=== PATIENT | female | born 1960 | race Caucasian/White ===

== ENCOUNTER 2020-12-03 11:50 | Inpatient (IN) ==
--- NOTE | 2020-12-03 12:43 | Emergency Department Note ---
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 (1.2-3.4) K/uL [place] # (Auto) (0.11-0.59) K/uL Eos # (Auto) (0-0.5) K/uL Baso # (Auto) (0-0.2) K/uL Immature Gran # (Auto) (0.00-0.02) K/uL PT (9.0-12.0) Seconds INR (0.9-1.1) APTT (21.0-31.0) Seconds PTT Ratio Sodium (136-145) mmol/L Potassium (3.5-5.1) mmol/L Chloride (98-107) mmol/L Carbon Dioxide (21-32) mmol/L Anion Gap (3-11) BUN (7-18) mg/dl Creatinine (0.6-1.2) mg/dl Est Cr Clr Drug Dosing ml/min Est GFR ( Amer) Est GFR (Non-Af Amer) BUN/Creatinine Ratio (10-20) Glucose (70-99) mg/dl POC Glucose 181 H (70-99) mg/dl Estimat Average Glucose mg/dl Hemoglobin A1c (4.5-5.6) % Lactate 2.4 H* (0.4-2.0) mmol/L Calcium (8.5-10.1) mg/dl Magnesium (1.8-2.4) mg/dl Total Bilirubin (0.2-1) mg/dl Direct Bilirubin (0-0.2) mg/dl AST (15-37) U/L ALT (12-78) U/L Alkaline Phosphatase (45-117) U/L Troponin I (0-0.045) ng/ml Total Protein (6.4-8.2) gm/dl Albumin (3.4-5.0) gm/dl Globulin (2.5-4.0) gm/dl Albumin/Globulin Ratio (0.9-2) Lipase (73-393) U/L Urine Color Urine Appearance (Clear) Urine pH (4.5-7.5) Ur Specific [place] [address] (1.000-1.030) Urine Protein (Negative) Urine Glucose (UA) (Negative) Urine Ketones (Negative) Urine Blood (Negative) Urine Nitrite (Negative) Urine Bilirubin (Negative) Urine Urobilinogen (Negative) Ur Leukocyte Esterase (Negative) Urine WBC (Auto) (0-5) /hpf Urine RBC (Auto) (0-4) /hpf U Hyaline Cast (Auto) (0-5) /lpf U Epithel Cells (Auto) (0-5) /lpf Urine Bacteria (Auto) (Negative) Urine Yeast Ethyl Alcohol mg/dL 22.2 H (0-3) mg/dl COVID-19 Eval Order SARS-CoV-2 (PCR) (Negative) Influenza Type A (PCR) (Neg) Influenza Type B (PCR) (Neg) RSV (RT-PCR) (Neg) 12/03/20 12/03/20 12/04/20 Range/Units 20:32 22:03 05:49 WBC 10.66 (4.8-10.8) K/uL RBC 4.47 (4.2-5.4) M/uL Hgb 15.2 (12.0-16.0) g/dL Hct 46.0 (37-47) % MCV 102.9 H (80-100) fL MCH 34.0 (25-34) pg MCHC 33.0 (32-36) g/dL RDW Std Deviation 55.9 H (36.4-46.3) fL RDW Coeff of Angelika 14.8 H (11.5-14.5) % Plt Count 285 (130-400) K/uL MPV 10.3 (7.4-10.4) fL Immature Gran % (Auto) 0.3 % Neut % (Auto) 42.4 % Lymph % (Auto) 37.1 % [place] % (Auto) 13.2 % Eos % (Auto) 5.6 % Baso % (Auto) 1.4 % Neut # (Auto) 4.51 (1.4-6.5) K/uL Lymph # (Auto) 3.96 H (1.2-3.4) K/uL [place] # (Auto) 1.41 H (0.11-0.59) K/uL Eos # (Auto) 0.60 H (0-0.5) K/uL Baso # (Auto) 0.15 (0-0.2) K/uL Immature Gran # (Auto) 0.03 H (0.00-0.02) K/uL PT (9.0-12.0) Seconds INR (0.9-1.1) APTT (21.0-31.0) Seconds PTT Ratio Sodium (136-145) mmol/L Potassium (3.5-5.1) mmol/L Chloride (98-107) mmol/L Carbon Dioxide (21-32) mmol/L Anion Gap (3-11) BUN (7-18) mg/dl Creatinine (0.6-1.2) mg/dl Est Cr Clr Drug Dosing ml/min Est GFR ( Amer) Est GFR (Non-Af Amer) BUN/Creatinine Ratio (10-20) Glucose (70-99) mg/dl POC Glucose 164 H 266 H (70-99) mg/dl Estimat Average Glucose mg/dl Hemoglobin A1c (4.5-5.6) % Lactate (0.4-2.0) mmol/L Calcium (8.5-10.1) mg/dl Magnesium (1.8-2.4) mg/dl Total Bilirubin (0.2-1) mg/dl Direct Bilirubin (0-0.2) mg/dl AST (15-37) U/L ALT (12-78) U/L Alkaline Phosphatase (45-117) U/L Troponin I (0-0.045) ng/ml Total Protein (6.4-8.2) gm/dl Albumin (3.4-5.0) gm/dl Globulin (2.5-4.0) gm/dl Albumin/Globulin Ratio (0.9-2) Lipase (73-393) U/L Urine Color Urine Appearance (Clear) Urine pH (4.5-7.5) Ur Specific [place] [address] (1.000-1.030) Urine Protein (Negative) Urine Glucose (UA) (Negative) Urine Ketones (Negative) Urine Blood (Negative) Urine Nitrite (Negative) Urine Bilirubin (Negative) Urine Urobilinogen (Negative) Ur Leukocyte Esterase (Negative) Urine WBC (Auto) (0-5) /hpf Urine RBC (Auto) (0-4) /hpf U Hyaline Cast (Auto) (0-5) /lpf U Epithel Cells (Auto) (0-5) /lpf Urine Bacteria (Auto) (Negative) Urine Yeast Ethyl Alcohol mg/dL (0-3) mg/dl COVID-19 Eval Order SARS-CoV-2 (PCR) (Negative) Influenza Type A (PCR) (Neg) Influenza Type B (PCR) (Neg) RSV (RT-PCR) (Neg) 12/04/20 12/04/20 12/04/20 Range/Units 07:21 07:21 08:13 WBC (4.8-10.8) K/uL RBC (4.2-5.4) M/uL Hgb (12.0-16.0) g/dL Hct (37-47) % MCV (80-100) fL MCH (25-34) pg MCHC (32-36) g/dL RDW Std Deviation (36.4-46.3) fL RDW Coeff of Angelika (11.5-14.5) % Plt Count (130-400) K/uL MPV (7.4-10.4) fL Immature Gran % (Auto) % Neut % (Auto) % Lymph % (Auto) % [place] % (Auto) % Eos % (Auto) % Baso % (Auto) % Neut # (Auto) (1.4-6.5) K/uL Lymph # (Auto) (1.2-3.4) K/uL [place] # (Auto) (0.11-0.59) K/uL Eos # (Auto) (0-0.5) K/uL Baso # (Auto) (0-0.2) K/uL Immature Gran # (Auto) (0.00-0.02) K/uL PT (9.0-12.0) Seconds INR (0.9-1.1) APTT (21.0-31.0) Seconds PTT Ratio Sodium 137 (136-145) mmol/L Potassium 3.2 L (3.5-5.1) mmol/L Chloride 103 (98-107) mmol/L Carbon Dioxide 26 (21-32) mmol/L Anion Gap 7.0 (3-11) BUN 6 L (7-18) mg/dl Creatinine 0.67 (0.6-1.2) mg/dl Est Cr Clr Drug Dosing 113.5 ml/min Est GFR ( Amer) 109.2 Est GFR (Non-Af Amer) 94.2 BUN/Creatinine Ratio 9.2 L (10-20) Glucose 201 H (70-99) mg/dl POC Glucose 181 H (70-99) mg/dl Estimat Average Glucose 260 mg/dl Hemoglobin A1c 10.7 H (4.5-5.6) % Lactate (0.4-2.0) mmol/L Calcium 8.6 (8.5-10.1) mg/dl Magnesium (1.8-2.4) mg/dl Total Bilirubin 0.8 (0.2-1) mg/dl Direct Bilirubin (0-0.2) mg/dl AST 65 H (15-37) U/L ALT 70 (12-78) U/L Alkaline Phosphatase 99 (45-117) U/L Troponin I (0-0.045) ng/ml Total Protein 6.8 (6.4-8.2) gm/dl Albumin 2.8 L (3.4-5.0) gm/dl Globulin 4.0 (2.5-4.0) gm/dl Albumin/Globulin Ratio 0.7 L (0.9-2) Lipase (73-393) U/L Urine Color Urine Appearance (Clear) Urine pH (4.5-7.5) Ur Specific [place] [address] (1.000-1.030) Urine Protein (Negative) Urine Glucose (UA) (Negative) Urine Ketones (Negative) Urine Blood (Negative) Urine Nitrite (Negative) Urine Bilirubin (Negative) Urine Urobilinogen (Negative) Ur Leukocyte Esterase (Negative) Urine WBC (Auto) (0-5) /hpf Urine RBC (Auto) (0-4) /hpf U Hyaline Cast (Auto) (0-5) /lpf U Epithel Cells (Auto) (0-5) /lpf Urine Bacteria (Auto) (Negative) Urine Yeast Ethyl Alcohol mg/dL (0-3) mg/dl COVID-19 Eval Order SARS-CoV-2 (PCR) (Negative) Influenza Type A (PCR) (Neg) Influenza Type B (PCR) (Neg) RSV (RT-PCR) (Neg) 12/04/20 12/04/20 12/04/20 Range/Units 13:18 17:11 20:26 WBC (4.8-10.8) K/uL RBC (4.2-5.4) M/uL Hgb (12.0-16.0) g/dL Hct (37-47) % MCV (80-100) fL MCH (25-34) pg MCHC (32-36) g/dL RDW Std Deviation (36.4-46.3) fL RDW Coeff of Angelika (11.5-14.5) % Plt Count (130-400) K/uL MPV (7.4-10.4) fL Immature Gran % (Auto) % Neut % (Auto) % Lymph % (Auto) % [place] % (Auto) % Eos % (Auto) % Baso % (Auto) % Neut # (Auto) (1.4-6.5) K/uL Lymph # (Auto) (1.2-3.4) K/uL [place] # (Auto) (0.11-0.59) K/uL Eos # (Auto) (0-0.5) K/uL Baso # (Auto) (0-0.2) K/uL Immature Gran # (Auto) (0.00-0.02) K/uL PT (9.0-12.0) Seconds INR (0.9-1.1) APTT (21.0-31.0) Seconds PTT Ratio Sodium (136-145) mmol/L Potassium (3.5-5.1) mmol/L Chloride (98-107) mmol/L Carbon Dioxide (21-32) mmol/L Anion Gap (3-11) BUN (7-18) mg/dl Creatinine (0.6-1.2) mg/dl Est Cr Clr Drug Dosing ml/min Est GFR ( Amer) Est GFR (Non-Af Amer) BUN/Creatinine Ratio (10-20) Glucose (70-99) mg/dl POC Glucose 156 H 203 H 219 H (70-99) mg/dl Estimat Average Glucose mg/dl Hemoglobin A1c (4.5-5.6) % Lactate (0.4-2.0) mmol/L Calcium (8.5-10.1) mg/dl Magnesium (1.8-2.4) mg/dl Total Bilirubin (0.2-1) mg/dl Direct Bilirubin (0-0.2) mg/dl AST (15-37) U/L ALT (12-78) U/L Alkaline Phosphatase (45-117) U/L Troponin I (0-0.045) ng/ml Total Protein (6.4-8.2) gm/dl Albumin (3.4-5.0) gm/dl Globulin (2.5-4.0) gm/dl Albumin/Globulin Ratio (0.9-2) Lipase (73-393) U/L Urine Color Urine Appearance (Clear) Urine pH (4.5-7.5) Ur Specific [place] [address] (1.000-1.030) Urine Protein (Negative) Urine Glucose (UA) (Negative) Urine Ketones (Negative) Urine Blood (Negative) Urine Nitrite (Negative) Urine Bilirubin (Negative) Urine Urobilinogen (Negative) Ur Leukocyte Esterase (Negative) Urine WBC (Auto) (0-5) /hpf Urine RBC (Auto) (0-4) /hpf U Hyaline Cast (Auto) (0-5) /lpf U Epithel Cells (Auto) (0-5) /lpf Urine Bacteria (Auto) (Negative) Urine Yeast Ethyl Alcohol mg/dL (0-3) mg/dl COVID-19 Eval Order SARS-CoV-2 (PCR) (Negative) Influenza Type A (PCR) (Neg) Influenza Type B (PCR) (Neg) RSV (RT-PCR) (Neg) 12/05/20 12/05/20 12/05/20 Range/Units 06:19 06:19 08:34 WBC 8.86 (4.8-10.8) K/uL RBC 4.59 (4.2-5.4) M/uL Hgb 16.1 H (12.0-16.0) g/dL Hct 47.2 H (37-47) % MCV 102.8 H (80-100) fL MCH 35.1 H (25-34) pg MCHC 34.1 (32-36) g/dL RDW Std Deviation 56.2 H (36.4-46.3) fL RDW Coeff of Angelika 14.8 H (11.5-14.5) % Plt Count 313 (130-400) K/uL MPV 10.7 H (7.4-10.4) fL Immature Gran % (Auto) 0.2 % Neut % (Auto) 43.5 % Lymph % (Auto) 34.9 % [place] % (Auto) 14.3 % Eos % (Auto) 5.1 % Baso % (Auto) 2.0 % Neut # (Auto) 3.85 (1.4-6.5) K/uL Lymph # (Auto) 3.09 (1.2-3.4) K/uL [place] # (Auto) 1.27 H (0.11-0.59) K/uL Eos # (Auto) 0.45 (0-0.5) K/uL Baso # (Auto) 0.18 (0-0.2) K/uL Immature Gran # (Auto) 0.02 (0.00-0.02) K/uL PT (9.0-12.0) Seconds INR (0.9-1.1) APTT (21.0-31.0) Seconds PTT Ratio Sodium 136 (136-145) mmol/L Potassium 3.4 L (3.5-5.1) mmol/L Chloride 104 (98-107) mmol/L Carbon Dioxide 26 (21-32) mmol/L Anion Gap 7.0 (3-11) BUN 6 L (7-18) mg/dl Creatinine 0.64 (0.6-1.2) mg/dl Est Cr Clr Drug Dosing 118.8 ml/min Est GFR ( Amer) 110.8 Est GFR (Non-Af Amer) 95.6 BUN/Creatinine Ratio 9.7 L (10-20) Glucose 172 H (70-99) mg/dl POC Glucose 170 H (70-99) mg/dl Estimat Average Glucose mg/dl Hemoglobin A1c (4.5-5.6) % Lactate (0.4-2.0) mmol/L Calcium 9.4 (8.5-10.1) mg/dl Magnesium (1.8-2.4) mg/dl Total Bilirubin 1.1 H (0.2-1) mg/dl Direct Bilirubin (0-0.2) mg/dl AST 56 H (15-37) U/L ALT 64 (12-78) U/L Alkaline Phosphatase 105 (45-117) U/L Troponin I (0-0.045) ng/ml Total Protein 6.8 (6.4-8.2) gm/dl Albumin 3.1 L (3.4-5.0) gm/dl Globulin 3.7 (2.5-4.0) gm/dl Albumin/Globulin Ratio 0.8 L (0.9-2) Lipase (73-393) U/L Urine Color Urine Appearance (Clear) Urine pH (4.5-7.5) Ur Specific [place] [address] (1.000-1.030) Urine Protein (Negative) Urine Glucose (UA) (Negative) Urine Ketones (Negative) Urine Blood (Negative) Urine Nitrite (Negative) Urine Bilirubin (Negative) Urine Urobilinogen (Negative) Ur Leukocyte Esterase (Negative) Urine WBC (Auto) (0-5) /hpf Urine RBC (Auto) (0-4) /hpf U Hyaline Cast (Auto) (0-5) /lpf U Epithel Cells (Auto) (0-5) /lpf Urine Bacteria (Auto) (Negative) Urine Yeast Ethyl Alcohol mg/dL (0-3) mg/dl COVID-19 Eval Order SARS-CoV-2 (PCR) (Negative) Influenza Type A (PCR) (Neg) Influenza Type B (PCR) (Neg) RSV (RT-PCR) (Neg) 12/05/20 Range/Units 12:15 WBC (4.8-10.8) K/uL RBC (4.2-5.4) M/uL Hgb (12.0-16.0) g/dL Hct (37-47) % MCV (80-100) fL MCH (25-34) pg MCHC (32-36) g/dL RDW Std Deviation (36.4-46.3) fL RDW Coeff of Angelika (11.5-14.5) % Plt Count (130-400) K/uL MPV (7.4-10.4) fL Immature Gran % (Auto) % Neut % (Auto) % Lymph % (Auto) % [place] % (Auto) % Eos % (Auto) % Baso % (Auto) % Neut # (Auto) (1.4-6.5) K/uL Lymph # (Auto) (1.2-3.4) K/uL [place] # (Auto) (0.11-0.59) K/uL Eos # (Auto) (0-0.5) K/uL Baso # (Auto) (0-0.2) K/uL Immature Gran # (Auto) (0.00-0.02) K/uL PT (9.0-12.0) Seconds INR (0.9-1.1) APTT (21.0-31.0) Seconds PTT Ratio Sodium (136-145) mmol/L Potassium (3.5-5.1) mmol/L Chloride (98-107) mmol/L Carbon Dioxide (21-32) mmol/L Anion Gap (3-11) BUN (7-18) mg/dl Creatinine (0.6-1.2) mg/dl Est Cr Clr Drug Dosing ml/min Est GFR ( Amer) Est GFR (Non-Af Amer) BUN/Creatinine Ratio (10-20) Glucose (70-99) mg/dl POC Glucose 135 H (70-99) mg/dl Estimat Average Glucose mg/dl Hemoglobin A1c (4.5-5.6) % Lactate (0.4-2.0) mmol/L Calcium (8.5-10.1) mg/dl Magnesium (1.8-2.4) mg/dl Total Bilirubin (0.2-1) mg/dl Direct Bilirubin (0-0.2) mg/dl AST (15-37) U/L ALT (12-78) U/L Alkaline Phosphatase (45-117) U/L Troponin I (0-0.045) ng/ml Total Protein (6.4-8.2) gm/dl Albumin (3.4-5.0) gm/dl Globulin (2.5-4.0) gm/dl Albumin/Globulin Ratio (0.9-2) Lipase (73-393) U/L Urine Color Urine Appearance (Clear) Urine pH (4.5-7.5) Ur Specific [place] [address] (1.000-1.030) Urine Protein (Negative) Urine Glucose (UA) (Negative) Urine Ketones (Negative) Urine Blood (Negative) Urine Nitrite (Negative) Urine Bilirubin (Negative) Urine Urobilinogen (Negative) Ur Leukocyte Esterase (Negative) Urine WBC (Auto) (0-5) /hpf Urine RBC (Auto) (0-4) /hpf U Hyaline Cast (Auto) (0-5) /lpf U Epithel Cells (Auto) (0-5) /lpf Urine Bacteria (Auto) (Negative) Urine Yeast Ethyl Alcohol mg/dL (0-3) mg/dl COVID-19 Eval Order SARS-CoV-2 (PCR) (Negative) Influenza Type A (PCR) (Neg) Influenza Type B (PCR) (Neg) RSV (RT-PCR) (Neg) Imaging Data Attestation: I personally reviewed and interpreted this imaging study as follows: Radiologist's Impression: CT abdomen pelvis with IV and oral contrast No significant change compared to the prior study. 2. No bowel wall thickening or obstruction. 3. Cirrhotic liver with associated hepatic steatosis. 4. Cholecystectomy and splenectomy. 5. Additional findings as described above. ACT 112: Negative or not required by law. cxr No acute process. ACT 112: Negative or not required by law. Electronically signed by: Weston Mcknight M.D. 12/03/2020 1:38 PM Dictated: 12/03/204Transcribed: 12/03/20 133 ECG Data Attestation: I personally reviewed and interpreted this ECG as follows: Indication: other Rate (beats per minute): 98 Rhythm: normal sinus Additional Comments: Frequent PVCs noted. No prior for comparison. No ST elevation or depression noted. MDM Narrative Differential diagnosis: Pancreatitis, retained stone, bowel obstruction, viral versus bacterial GI illness, cardiac arrhythmia, cardiac ischemia, PE, other viral illness, among others were considered This patient is a 60-year-old female who presents emergency department with multiple complaints as noted above. On exam, her vital signs were stable. She was slightly tachycardic. Her blood pressure however was normal. Her abdomen was slightly tender in the epigastric and right upper quadrant. A work-up was performed. There is no leukocytosis. Her LFTs are within normal limits. Renal function intact. Lipase was negative. Chest x-ray was performed. No signs of pneumonia noted. She is Covid negative. A CAT scan was performed. This is consistent with cirrhotic disease of the liver. The patient was hydrated and given several rounds of antiemetics in the emergency department. We had a lengthy discussion regarding disposition. At this point, the patient does not feel comfortable going home as she does not think that she can tolerate a diet. Hospitalist was consulted for possible inpatient management. Impression & Plan Intractable vomiting, Abdominal pain Discharge Plan Visit Data Chief Complaint: Abdominal Pain Stated Complaint: RT SIDED ABD PAIN INTO BACK, VOMITING ED Provider: Lex Rouse ED Midlevel Provider: Natalie Arenas Discharge Problem: Intractable vomiting, Abdominal pain Patient Disposition: Admitted As Inpatient Discharge Instructions Interventions: ED Discharge Assessment Last Done: 12/03/20 19:11
[2020-12-03] MEDS ORDERED: SODIUM CHLORIDE 0.9% 1000ML 1,000 ML IV SCH (12:45)
--- NOTE | 2020-12-03 13:40 | XRay Report ---
XR chest 1V portable HISTORY: SEPSIS COMPARISON: None. FINDINGS: The lungs are clear. Overlying calcified breast implants are noted. The heart is top normal in size. This may be accentuated by the low lung volumes. No pleural effusions. No pneumothorax. No evidence for pulmonary edema. IMPRESSION: No acute process. ACT 112: Negative or not required by law. Electronically signed by: Weston Mcknight M.D. 12/03/2020 1:38 PM
[2020-12-03] MEDS ORDERED: ONDANSETRON INJ 2 MG/ML 2 ML VIAL IV STA (13:42)
[2020-12-03 13:45] LABS: Appearance Urine Turbid (Clear); Bacteria Urine Automated 4+ (Negative); Bilirubin Urine Negative (Negative); Blood Urine Negative (Negative); Color Urine Dark Yellow; Epithelial Cell Urine Auto >30 /lpf (0-5); Glucose Urine UA 3+ (Negative); Ketones Urine Trace (Negative); Leukocyte Esterase Urine Negative (Negative); Nitrite Urine Negative (Negative); Protein Urine Trace (Negative); RBC Urine Automated 0-4 /hpf (0-4); Specific Gravity Urine 1.025 (1.000-1.030); Urobilinogen Urine Negative (Negative); WBC Urine Automated >30 /hpf (0-5)
[2020-12-03 14:04] LABS: Cast Urine Automated 0 /lpf (0-5)
[2020-12-03 14:26] LABS: Influenza A virus by PCR Negative (Neg); Influenza B virus by PCR Negative (Neg); RSV by PCR Negative (Neg); SARS CoV2 RNA(COVID-19) InHosp NEGATIVE (Negative)
[2020-12-03 14:27] LABS: Basophils # (auto) 0.19 K/uL (0-0.2); Basophils % (auto) 1.7 %; Eosinophils # (auto) 0.51 K/uL (0-0.5); Eosinophils % (auto) 4.7 %; Hematocrit (blood only) 48.6 % (37-47); Immature Granulocytes # (auto) 0.03 K/uL (0.00-0.02); Immature Granulocytes % (auto) 0.3 %; Lymphocytes # (auto) 3.54 K/uL (1.2-3.4); Lymphocytes % (auto) 32.4 %; Mean Corpuscular Hemoglobin 35.3 pg (25-34); Mean Platelet Volume 11.2 fL (7.4-10.4); Monocytes # (auto) 1.63 K/uL (0.11-0.59); Monocytes % (auto) 14.9 %; Neutrophils # (auto) 5.01 K/uL (1.4-6.5); Platelet Count 334 K/uL (130-400); RDW Coefficient of Variation 14.6 % (11.5-14.5); RDW Standard Deviation 53.7 fL (36.4-46.3); Red Blood Count 4.81 M/uL (4.2-5.4); White Blood Count 10.91 K/uL (4.8-10.8)
[2020-12-03] MEDS ORDERED: SODIUM CHLORIDE 0.9% 1000ML 1,000 ML IV ONE (14:41)
[2020-12-03 14:48] LABS: Partial Thromboplastin Time 27.6 Seconds (21.0-31.0); Prothrombin Time 10.9 Seconds (9.0-12.0)
[2020-12-03 14:49] LABS: Alanine Aminotransferase 82 U/L (12-78); Albumin Level 3.5 gm/dl (3.4-5.0); Aspartate Aminotransferase 79 U/L (15-37); BUN Creatinine Ratio 8.5 (10-20); Blood Urea Nitrogen 7 mg/dl (7-18); Calcium 9.8 mg/dl (8.5-10.1); Carbon Dioxide 24 mmol/L (21-32); Chloride 99 mmol/L (98-107); Creatinine Clr Calc Pharmacy 95.2 ml/min; Est GFR (Non-African American) 80.2; Glucose 287 mg/dl (70-99); Magnesium 1.8 mg/dl (1.8-2.4); Potassium 3.1 mmol/L (3.5-5.1); Sodium 136 mmol/L (136-145)
[2020-12-03 14:54] LABS: Albumin Globulin Ratio 0.8 (0.9-2); Alkaline Phosphatase 122 U/L (45-117); Bilirubin,Total 0.8 mg/dl (0.2-1); Globulin 4.5 gm/dl (2.5-4.0); Troponin I < 0.015 ng/ml (0-0.045)
[2020-12-03] MEDS ORDERED: IOVERSOL 100ml IV ONE (15:11)
[2020-12-03 15:31] LABS: Bilirubin Direct 0.3 mg/dl (0-0.2)
--- NOTE | 2020-12-03 15:33 | CT Scan Report ---
ABDOMEN AND PELVIS CT WITH IV AND ORAL CONTRAST CT DOSE: 1473.51 mGy.cm HISTORY: Nausea. Vomiting. Generalized abdominal pain. TECHNIQUE: Multiaxial CT images of the abdomen and pelvis were performed following the use of intrave nous and oral contrast. A dose lowering technique was utilized adhering to the principles of ALARA. COMPARISON STUDY: None. FINDINGS: Mild dependent changes seen at the lung bases. No pneumoperitoneum. No pneumatosis. Old, he aled right pubic ring fractures and an old, healed left iliac bone fracture. Calcified breast implant s are again noted. Hepatic steatosis. Heterogeneous appearance to the liver with a nodular contour co nsistent with cirrhosis. The main portal vein is patent. The spleen is absent. There is a stable sple rosa isela nodule within the left upper quadrant. The adrenal glands, pancreas, and kidneys are within venu l limits. No hydronephrosis. No retroperitoneal lymphadenopathy. Normal caliber abdominal aorta. An I VC filter is unchanged in position. Cholecystectomy. The bladder, uterus, bilateral adnexa are within normal limits. No pelvic free fluid. No bowel wall thickening or obstruction. The appendix is not id entified and reportedly surgically absent. IMPRESSION: 1. No significant change compared to the prior study. 2. No bowel wall thickening or obstruction. 3. Cirrhotic liver with associated hepatic steatosis. 4. Cholecystectomy and splenectomy. 5. Additional findings as described above. ACT 112: Negative or not required by law. Electronically signed by: Weston Mcknight M.D. 12/03/2020 3:32 PM
[2020-12-03] MEDS ORDERED: MoRPHine SULFATE 4 MG/ML 1 ML CARP\\VIAL IV STA (16:08)
--- NOTE | 2020-12-03 16:27 | Electrocardiogram Report ---
Test Reason : Blood Pressure : / mmHG Vent. Rate : 098 BPM Atrial Rate : 098 BPM P-R Int : 156 ms QRS Dur : 150 ms QT Int : 422 ms P-R-T Axes : 043 -34 009 degrees QTc Int : 538 ms Sinus rhythm with occasional Premature ventricular complexes Left axis deviation Right bundle branch block Abnormal ECG No previous ECGs available Confirmed by Travis Dozier ([id number]) on 12/03/2020 4:26:37 PM Referred By: Claudia Cardenas Confirmed By:Travis Dozier
[2020-12-03] MEDS ORDERED: cefTRIAXone SODIUM 2,000 MG/70 ML BAG IV STA (16:30)
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
[2020-12-03] MEDS ORDERED: GI COCKTAIL ED USE PO STA (17:26)
[2020-12-03] MEDS ORDERED: CARBOHYDRATES FOR HYPOGLYCEMIA PO PRN (20:15)
[2020-12-03] MEDS ORDERED: ALUMINUM/MAGNESIUM SUSP 30 ML UDC PO PRN (20:15)
[2020-12-03] MEDS ORDERED: POLYETHYLENE (MIRALAX) 17 GM PACK PO PRN (20:15)
[2020-12-03] MEDS ORDERED: DEXTROSE 50% 50 ML SYRINGE IV PRN (20:15)
[2020-12-03] MEDS ORDERED: GLUCOSE 40% GEL 15 GM TUBE PO PRN (20:15)
[2020-12-03] MEDS ORDERED: GLUCOSE 10 TABS/TUBE PO PRN (20:15)
[2020-12-03] MEDS ORDERED: GLUCAGON FOR INJ 1 MG VIAL SQ PRN (20:15)
[2020-12-03] MEDS: ACETAMINOPHEN 325 MG TAB PO PRN (21:59)
[2020-12-03] MEDS: ZOLPIDEM TARTRATE 10 MG TAB PO PRN (22:01)
[2020-12-03] MEDS: FAMOTIDINE 20 MG TAB PO SCH (22:01)
[2020-12-03] MEDS: GABAPENTIN 300 MG CAP PO SCH (22:02)
[2020-12-03] MEDS: INSULIN GLARGINE SOLOSTAR 100 UNITS/ML 3 ML PEN SC SCH (22:06)
[2020-12-03] MEDS: INSULIN ASPART 100 UNITS/ML 3 ML PEN SC SCH (22:07)
[2020-12-03] MEDS: ONDANSETRON INJ 2 MG/ML 2 ML VIAL IV PRN (22:11)
[2020-12-04] MEDS: LEVOTHYROXINE SODIUM 50 MCG TABLET PO SCH (06:12)
[2020-12-04 07:34] LABS: Basophils # (auto) 0.15 K/uL (0-0.2); Basophils % (auto) 1.4 %; Eosinophils % (auto) 5.6 %; Hemoglobin 15.2 g/dL (12.0-16.0); Immature Granulocytes # (auto) 0.03 K/uL (0.00-0.02); Immature Granulocytes % (auto) 0.3 %; Lymphocytes # (auto) 3.96 K/uL (1.2-3.4); Lymphocytes % (auto) 37.1 %; Mean Corpuscular Volume 102.9 fL (80-100); Mean Platelet Volume 10.3 fL (7.4-10.4); Monocytes # (auto) 1.41 K/uL (0.11-0.59); Monocytes % (auto) 13.2 %; Neutrophils # (auto) 4.51 K/uL (1.4-6.5); Neutrophils % (auto) 42.4 %; Platelet Count 285 K/uL (130-400); RDW Coefficient of Variation 14.8 % (11.5-14.5); RDW Standard Deviation 55.9 fL (36.4-46.3); Red Blood Count 4.47 M/uL (4.2-5.4); White Blood Count 10.66 K/uL (4.8-10.8)
[2020-12-04 07:54] LABS: Albumin Level 2.8 gm/dl (3.4-5.0); BUN Creatinine Ratio 9.2 (10-20); Calcium 8.6 mg/dl (8.5-10.1); Creatinine Clr Calc Pharmacy 113.5 ml/min; Est GFR (African American) 109.2; Est GFR (Non-African American) 94.2; Potassium 3.2 mmol/L (3.5-5.1)
[2020-12-04] MEDS: LACTATED RINGER'S 1,000 ML IV SCH ×2 (07:54→19:53)
[2020-12-04] MEDS: FLUTICASONE FUROATE 200MCG 14 PUFFS/INHALER INH SCH (07:54)
[2020-12-04] MEDS: PARoxetine HCL 10 MG TAB PO SCH (07:55)
[2020-12-04] MEDS: TRIAMTERENE/HCTZ 37.5/25MG TAB PO SCH (07:55)
[2020-12-04] MEDS: FAMOTIDINE 20 MG TAB PO SCH ×2 (07:55→20:55)
[2020-12-04] MEDS: EZETIMIBE 10 MG TABLET PO SCH (07:55)
[2020-12-04] MEDS: LOSARTAN POTASSIUM 25 MG TAB PO SCH (07:55)
[2020-12-04] MEDS: CYANOCOBALAMIN 500 MCG TABLET (VITAMIN B-12) PO SCH (07:55)
[2020-12-04 07:56] LABS: Albumin Globulin Ratio 0.7 (0.9-2); Bilirubin,Total 0.8 mg/dl (0.2-1); Total Protein 6.8 gm/dl (6.4-8.2)
[2020-12-04] MEDS: cefTRIAXone SODIUM 2,000 MG in DEXTROSE 5% 50 ML IV SCH (08:22)
[2020-12-04 08:23] LABS: Estimated Average Glucose 260 mg/dl; Hemoglobin A1C 10.7 % (4.5-5.6)
[2020-12-04] MEDS: INSULIN GLARGINE SOLOSTAR 100 UNITS/ML 3 ML PEN SC SCH ×2 (08:26→20:59)
[2020-12-04] MEDS: INSULIN ASPART 100 UNITS/ML 3 ML PEN SC SCH ×3 (08:27→20:58)
[2020-12-04] MEDS: ACETAMINOPHEN 325 MG TAB PO PRN ×2 (08:35→20:23)
[2020-12-04] MEDS: ONDANSETRON INJ 2 MG/ML 2 ML VIAL IV PRN (08:36)
[2020-12-04] MEDS ORDERED: PANTOprazole 40 MG TAB PO SCH (09:00)
--- NOTE | 2020-12-04 09:10 | Ultrasound Report ---
US duplex mesenteric CLINICAL HISTORY: RUQ/epigastric abdominal pain after eating COMPARISON STUDY: Abdomen and pelvis CT 12/03/2020. FINDINGS: Doppler imaging of the abdominal vessels were performed. Only a short segment of the mid ab dominal aorta was identified and appears be normal in caliber. This demonstrates normal velocities wi th no evidence for stenosis or occlusion. The mesenteric vessels were obscured by overlying bowel gas . Of note, the mesenteric vessels appeared widely patent on the recent abdomen and pelvis CT. IMPRESSION: Nondiagnostic evaluation of the mesenteric vessels due to overlying bowel gas. Of note, the mesenteric vessels are widely patent on the recent abdomen and pelvis CT. ACT 112: Negative or not required by law. Electronically signed by: Weston Mcknight M.D. 12/04/2020 9:09 AM
[2020-12-04] MEDS: POTASSIUM CHLORIDE / WTR 10 MEQ/100 ML PLCT IV SCH ×3 (09:44→14:19)
[2020-12-04] MEDS ORDERED: Nursing to Pharmacy Communication SCH ×2 (10:00→14:45)
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
[2020-12-04] MEDS ORDERED: INSULIN ASPART 100 UNITS/ML 3 ML PEN SC SCH (12:00)
[2020-12-04] MEDS ORDERED: PROPOFOL IV EMULSION 10 MG/ML 20 ML VIAL IV ONE (12:24)
--- NOTE | 2020-12-04 12:27 | GI REPORT ---
Patient Name: Aisha Knight Procedure Date: 12/04/2020 12:10 PM Date of : 1960 Admit Type: Inpatient Age: 60 Gender: Female Attending MD: Neri Cordero MD Procedure: Upper GI endoscopy Providers: Neri Cordero MD Referring MD: George Ram Indications: Abdominal pain in the right upper quadrant Medicines: Monitored Anesthesia Care Complications: No immediate complications. Estimated blood loss: None. Estimated Blood Loss: Estimated blood loss: none. Procedure: Pre-Anesthesia Assessment: - Prior Anticoagulants: The patient has taken no previous anticoagulant or antiplatelet agents. - ASA Grade Assessment: II - A patient with mild systemic disease. After obtaining informed consent, the endoscope was passed under direct vision. Throughout the procedure, the patient's blood pressure, pulse, and oxygen saturations were monitored continuously. The Endoscope was introduced through the mouth, and advanced to the second part of duodenum. The upper GI endoscopy was accomplished without difficulty. The patient tolerated the procedure well. Findings: Moderately severe esophagitis was found. Biopsies were taken with a cold forceps for histology. Estimated blood loss: none. Cells for cytology were obtained by brushing. Estimated blood loss: none. Mild portal hypertensive gastropathy was found in the gastric body. One non-bleeding linear, clean based gastric ulcer with no stigmata of bleeding was found in the gastric antrum. Biopsies were taken with a cold forceps for Helicobacter pylori testing. Estimated blood loss: none. The duodenal bulb and second portion of the duodenum were normal. Impression: - Moderately severe esophagitis. Biopsied. Cells for cytology obtained. - Portal hypertensive gastropathy. - Non-bleeding gastric ulcer with no stigmata of bleeding. Biopsied. - Normal duodenal bulb and second portion of the duodenum. Recommendation: - Return patient to hospital young for ongoing care. - Advance diet as tolerated today. - Await pathology results and cytology. - start protonix 40 mg daily -repeat EGD in 3 months Neri Cordero MD 12/04/2020 12:27:15 PM This report has been signed electronically. Note Initiated On: 12/04/2020 12:10 PM Number of Addenda: 0 I attest to the content of the Intraoperative Record and orders documented therein, exceptions below {[id number]}
--- NOTE | 2020-12-04 12:28 | Procedure Note ---
Procedure Note Date of Service December 04, 2020 GI procedure note EGD findings: gastric ulcer, esophagitis, portal hypertensive gastropathy. brushings for timi taken, biopsies taken. Recs: diet as tolerated f/u path and cytology protonix 40 mg daily repeat EGD in 3 months Neri Cordero MD Gastroenterology Coding
--- NOTE | 2020-12-04 12:31 | Anesthesiology Progress Note ---
Date of Service December 04, 2020 Anesthesia Post Procedure Vital Signs Vital Signs: Temp Pulse Pulse Resp BP BP BP 12/04/20 10:55 37.6 C H 86 16 169/92 H 12/04/20 07:48 37.3 C 89 18 156/86 H 12/03/20 23:30 37.1 C 87 16 148/86 H 12/03/20 19:42 37.5 C 93 H 16 156/88 H 12/03/20 19:11 86 19 135/69 12/03/20 16:00 87 18 102/77 12/03/20 14:14 88 18 171/101 H 12/03/20 13:37 96 H 18 Pulse Ox 12/04/20 10:55 94 12/04/20 07:48 94 12/03/20 23:30 91 12/03/20 19:42 94 12/03/20 19:11 100 12/03/20 16:00 94 12/03/20 14:14 97 12/03/20 13:37 95 Pain Intensity Right Ribs: Pain Intensity: 2 Transfer of Care Handoff Completed per policy Notes Mental Status: alert / awake / arousable Patient Amnestic to Procedure: Yes Nausea / Vomiting: adequately controlled Pain: adequately controlled Airway Patency, RR, SpO2: stable & adequate BP & HR: stable & adequate Hydration State: stable & adequate Anesthetic Complications: no major complications apparent and Pt Satisfied with anesthetic care Notes: The patient is awake and comfortable in recovery. Her vital signs are stable.
--- NOTE | 2020-12-04 15:30 | Medical Student Progress Note ---
Date of Service December 04, 2020 Assessment & Plan (1) Gastric ulcer: - Consistent with patient's sx of RUQ - epigastric postprandial pain that is sharp and intermittent - Pt takes ibuprofen daily and drinks 2-3 alcoholic drinks/day increasing risk of PUD - GI consulted, EGD findings included esophagitis and gastric ulcer, biopsies taken - Given GI cocktail in ED - Omeprazole switched to Pantoprazole 40mg BID - Started on Famotidine 20mg -Started on Carafate - Counseled patient about avoiding/reducing alcohol intake, ibuprofen use, and limiting acidic foods (2) RUQ abdominal pain: -Pain likely to be attributable to gastric ulcer and liver disease -Pt admitted with elevated transaminases that have downtrended -Pt has a hx of fatty liver disease as seen on last CT from 2019 -Last Abd/CT revealed nodularity in liver contour consistent with cirrhosis -Elevated transaminases likely due to early stage liver cirrhosis in the setting of chronic alcohol use of 2-3 drinks/day -Will continue to monitor transaminase levels q24 -Tyelnol ordered for pain, limit to 2g per 24 hour period -Morphine ordered for pain, 2mg q6 prn -Pt was counseled about the importance of alcohol cessation and limiting fats in diet in order to limit further progression of liver cirrhosis (3) UTI (urinary tract infection): -Pt had been experiencing dysuria and inability to urinate for the last several days -U/A + glucose, WBC, and bacteria -Urine culture pending -Started on Ceftriaxone 2000mg X 3 days (4) Abnormal liver diagnostic imaging: -Abd CT revealed nodularity within the contour of the liver likely to be liver cirrhosis -Likely to be a mixture of alcohol cirrhosis and NAFLD given the patient's alcohol use and hx of hepatosteatosis seen on CT imaging 12/2019 - Likely to be early stage cirrhosis since Plts, PT/INR within normal limits and EGD showed no evidence of esophageal or gastric varices (5) Type 2 diabetes mellitus: -HgbA1c of 10.5 - Continue home med lantus 10 units BID - Insulin Sliding Scale ordered - Counseled about the link between type 2 DM and NAFLD and the importance of adhering to a diabetic diet Diabetes mellitus complication detail: with polyneuropathy Diabetes mellitus complication status: with neurologic complications Diabetes mellitus medical terminologist insulin use: with medical terminologist use Qualified Code(s): E11.42 - Type 2 diabetes mellitus with diabetic polyneuropathy; Z79.4 - correction (current) use of insulin (6) Hypothyroidism: -TSH 1.2 -Continue Levothyroxine 50 mcg qd Hypothyroidism type: acquired Qualified Code(s): E03.9 - Hypothyroidism, unspecified (7) Hypertension: -Continue home meds losartan 25mg, triamterene/hctz 37.5mg Hypertension type: essential hypertension Qualified Code(s): I10 - Essential (primary) hypertension (8) Hyperlipidemia: -Continue home med Ezetimibe 10mg Qam Hyperlipidemia type: mixed hyperlipidemia Qualified Code(s): E78.2 - Mixed hyperlipidemia (9) Hepatitis C: -treated with interferon and ribavarin -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 ongoing upper abdominal/RUQ pain, radiates to R back. separately in discussing DM and lifestyle she insists that she eats nearly no simple carbs. vitals noted mildly uncomfortable due to abdominal pain heent nc at mmm abd soft (+) epigastric and RUQ pain msk/ost - R sided Tspine paraspinals high tone/tender/decreased ROM no true CVA tenderness to percussion abdominal pain - likely predominantly PUD and esophagitis, can't r/o some degree of liver pain from transaminitis/mild acute hepatitis; also then has viscerosomatic pain in Tspine paraspinals that have created referred spasm PUD/esophagitis -stop nsaids and EtOH -H2 and PPI for now -carafate QID for now -await bx/brushings - intervene if necessary cirrhosis/fatty liver -likely formerly insult from hep C, now highly likely metabolic fatty liver as well as mild acute toxic hepatitis from ibuprofen and EtOH -cessation of offending agents -lifestyle change uncontrolled DM2 -tried to educate on lifestyle. if she truly eats the way she is describing then it would be worthwhile to pursue NASIR/RONEL type pathology, but given the rest of her parameters point toward metabolic syndrome and therefore insulin resistance/type 2 diabetes - will try to continue to revisit lifestyle hx as more than likely there are simple carbs she's missing/not realizing/not recalling -continue to titrate insulins, follow DVT proph - ambulation since PUD - don't want to increase bleed risk Subjective Pt is a 60 yo F w/ a pmh of DM, Hep C, cholecystectomy followed by acute cholangitis admitted for a one month hx of RUQ pain, NV. Pt describes initially experiencing fever and SOB that she attributed to a viral illness. Soon after the illness, the patient soon developed postprandial abdominal pain in RUQ and epigastric region that was accompanied by nausea. The pain has been intermittent, but has also increased in severity to the point where the patient has not been able to eat solid foods, only small amounts of liquid. Pt did see her PCP for the pain, and was her omeprazole dose was increased from 20mg to 40mg. The patient feels that the omeprazole has not helped with RUQ pain and nausea. Pt does admit to drinking more regularly since the start of the pandemic, stating she has been drinking about 2-3 beers/day. ED course was significant for u/a positive for bacteria and elevated transaminase levels. Today geller the first day of the patient's stay. Pt is still experiencing RUQ pain, but not any nausea. The pain is anywhere between a 4-8/10. Pt has been NPO since midnight. Pt has not gotten out of the bed much due to the pain, only walking to and from the bathroom to urinate. Pt says she has experiences sx of dysuria and increased urinary frequency for the last two days, but had not been too bothered with the pain as much as the RUQ. Review of Systems Constitutional: denies fatigue, malaise, fever Eyes: denies changes in vision Respiratory: denies cough, dyspnea Cardiovascular: Additional Comments: denies chest pain, palpitations Gastrointestinal: + RUQ pain, + nausea, + rectal bleeding Genitourinary: + dysuria, + urinary frequency Integumentary: denies yellowing of skin, changes in skin color Neurologic: denies headache, dizziness, weakness, numbness Physical Exam Constitutional: well developed Eyes: PERRL, conjunctivae normal, anicteric sclerae Respiratory: normal respiratory effort, lungs clear to auscultation Cardiovascular: RRR, no murmur, no edema Gastrointestinal (Abdomen): hypoactive bowel sounds, tender to palpation along the RUQ, no hepatosplenomegaly Psychiatric: A+Ox3, euthymic affect Results & Data ([facility]) Vital Signs (Past 12 Hours) Vital Signs Temp Pulse Resp BP Pulse Ox 12/04/20 13:14 37.2 C 83 18 170/94 H 94 12/04/20 12:53 82 16 131/68 94 12/04/20 12:38 87 18 130/63 94 12/04/20 12:22 84 16 122/58 L 94 12/04/20 10:55 37.6 C H 86 16 169/92 H 94 12/04/20 07:48 37.3 C 89 18 156/86 H 94 Laboratory Results Abnormal lab results 12/03/20 12/03/20 12/03/20 Range/Units 12:52 13:35 13:50 WBC 10.91 H (4.8-10.8) K/uL Hgb 17.0 H (12.0-16.0) g/dL Hct 48.6 H (37-47) % MCV 101.0 H (80-100) fL MCH 35.3 H (25-34) pg RDW Std Deviation 53.7 H (36.4-46.3) fL RDW Coeff of Angelika 14.6 H (11.5-14.5) % MPV 11.2 H (7.4-10.4) fL Lymph # (Auto) 3.54 H (1.2-3.4) K/uL Potter # (Auto) 1.63 H (0.11-0.59) K/uL Eos # (Auto) 0.51 H (0-0.5) K/uL Immature Gran # (Auto) 0.03 H (0.00-0.02) K/uL Potassium (3.5-5.1) mmol/L Anion Gap (3-11) BUN (7-18) mg/dl BUN/Creatinine Ratio (10-20) Glucose (70-99) mg/dl POC Glucose 304 H* (70-99) mg/dl Hemoglobin A1c (4.5-5.6) % Lactate (0.4-2.0) mmol/L Direct Bilirubin (0-0.2) mg/dl AST (15-37) U/L ALT (12-78) U/L Alkaline Phosphatase (45-117) U/L Albumin (3.4-5.0) gm/dl Globulin (2.5-4.0) gm/dl Albumin/Globulin Ratio (0.9-2) Urine Appearance Turbid A (Clear) Urine Protein Trace H (Negative) Urine Glucose (UA) 3+ H (Negative) Urine Ketones Trace H (Negative) Urine WBC (Auto) >30 H (0-5) /hpf U Epithel Cells (Auto) >30 H (0-5) /lpf Urine Bacteria (Auto) 4+ H (Negative) Ethyl Alcohol mg/dL (0-3) mg/dl 12/03/20 12/03/20 12/03/20 Range/Units 13:50 13:50 15:03 WBC (4.8-10.8) K/uL Hgb (12.0-16.0) g/dL Hct (37-47) % MCV (80-100) fL MCH (25-34) pg RDW Std Deviation (36.4-46.3) fL RDW Coeff of Angelika (11.5-14.5) % MPV (7.4-10.4) fL Lymph # (Auto) (1.2-3.4) K/uL Potter # (Auto) (0.11-0.59) K/uL Eos # (Auto) (0-0.5) K/uL Immature Gran # (Auto) (0.00-0.02) K/uL Potassium 3.1 L (3.5-5.1) mmol/L Anion Gap 13.0 H (3-11) BUN (7-18) mg/dl BUN/Creatinine Ratio 8.5 L (10-20) Glucose 287 H (70-99) mg/dl POC Glucose (70-99) mg/dl Hemoglobin A1c (4.5-5.6) % Lactate 3.1 H* (0.4-2.0) mmol/L Direct Bilirubin 0.3 H (0-0.2) mg/dl AST 79 H (15-37) U/L ALT 82 H (12-78) U/L Alkaline Phosphatase 122 H (45-117) U/L Albumin (3.4-5.0) gm/dl Globulin 4.5 H (2.5-4.0) gm/dl Albumin/Globulin Ratio 0.8 L (0.9-2) Urine Appearance (Clear) Urine Protein (Negative) Urine Glucose (UA) (Negative) Urine Ketones (Negative) Urine WBC (Auto) (0-5) /hpf U Epithel Cells (Auto) (0-5) /lpf Urine Bacteria (Auto) (Negative) Ethyl Alcohol mg/dL (0-3) mg/dl 12/03/20 12/03/20 12/03/20 Range/Units 15:03 16:04 19:05 WBC (4.8-10.8) K/uL Hgb (12.0-16.0) g/dL Hct (37-47) % MCV (80-100) fL MCH (25-34) pg RDW Std Deviation (36.4-46.3) fL RDW Coeff of Angelika (11.5-14.5) % MPV (7.4-10.4) fL Lymph # (Auto) (1.2-3.4) K/uL Potter # (Auto) (0.11-0.59) K/uL Eos # (Auto) (0-0.5) K/uL Immature Gran # (Auto) (0.00-0.02) K/uL Potassium (3.5-5.1) mmol/L Anion Gap (3-11) BUN (7-18) mg/dl BUN/Creatinine Ratio (10-20) Glucose (70-99) mg/dl POC Glucose 181 H (70-99) mg/dl Hemoglobin A1c (4.5-5.6) % Lactate 2.4 H* (0.4-2.0) mmol/L Direct Bilirubin (0-0.2) mg/dl AST (15-37) U/L ALT (12-78) U/L Alkaline Phosphatase (45-117) U/L Albumin (3.4-5.0) gm/dl Globulin (2.5-4.0) gm/dl Albumin/Globulin Ratio (0.9-2) Urine Appearance (Clear) Urine Protein (Negative) Urine Glucose (UA) (Negative) Urine Ketones (Negative) Urine WBC (Auto) (0-5) /hpf U Epithel Cells (Auto) (0-5) /lpf Urine Bacteria (Auto) (Negative) Ethyl Alcohol mg/dL 22.2 H (0-3) mg/dl 12/03/20 12/03/20 12/04/20 Range/Units 20:32 22:03 05:49 WBC (4.8-10.8) K/uL Hgb (12.0-16.0) g/dL Hct (37-47) % MCV 102.9 H (80-100) fL MCH (25-34) pg RDW Std Deviation 55.9 H (36.4-46.3) fL RDW Coeff of Angelika 14.8 H (11.5-14.5) % MPV (7.4-10.4) fL Lymph # (Auto) 3.96 H (1.2-3.4) K/uL Potter # (Auto) 1.41 H (0.11-0.59) K/uL Eos # (Auto) 0.60 H (0-0.5) K/uL Immature Gran # (Auto) 0.03 H (0.00-0.02) K/uL Potassium (3.5-5.1) mmol/L Anion Gap (3-11) BUN (7-18) mg/dl BUN/Creatinine Ratio (10-20) Glucose (70-99) mg/dl POC Glucose 164 H 266 H (70-99) mg/dl Hemoglobin A1c (4.5-5.6) % Lactate (0.4-2.0) mmol/L Direct Bilirubin (0-0.2) mg/dl AST (15-37) U/L ALT (12-78) U/L Alkaline Phosphatase (45-117) U/L Albumin (3.4-5.0) gm/dl Globulin (2.5-4.0) gm/dl Albumin/Globulin Ratio (0.9-2) Urine Appearance (Clear) Urine Protein (Negative) Urine Glucose (UA) (Negative) Urine Ketones (Negative) Urine WBC (Auto) (0-5) /hpf U Epithel Cells (Auto) (0-5) /lpf Urine Bacteria (Auto) (Negative) Ethyl Alcohol mg/dL (0-3) mg/dl 12/04/20 12/04/20 12/04/20 Range/Units 07:21 07:21 08:13 WBC (4.8-10.8) K/uL Hgb (12.0-16.0) g/dL Hct (37-47) % MCV (80-100) fL MCH (25-34) pg RDW Std Deviation (36.4-46.3) fL RDW Coeff of Angelika (11.5-14.5) % MPV (7.4-10.4) fL Lymph # (Auto) (1.2-3.4) K/uL Potter # (Auto) (0.11-0.59) K/uL Eos # (Auto) (0-0.5) K/uL Immature Gran # (Auto) (0.00-0.02) K/uL Potassium 3.2 L (3.5-5.1) mmol/L Anion Gap (3-11) BUN 6 L (7-18) mg/dl BUN/Creatinine Ratio 9.2 L (10-20) Glucose 201 H (70-99) mg/dl POC Glucose 181 H (70-99) mg/dl Hemoglobin A1c 10.7 H (4.5-5.6) % Lactate (0.4-2.0) mmol/L Direct Bilirubin (0-0.2) mg/dl AST 65 H (15-37) U/L ALT (12-78) U/L Alkaline Phosphatase (45-117) U/L Albumin 2.8 L (3.4-5.0) gm/dl Globulin (2.5-4.0) gm/dl Albumin/Globulin Ratio 0.7 L (0.9-2) Urine Appearance (Clear) Urine Protein (Negative) Urine Glucose (UA) (Negative) Urine Ketones (Negative) Urine WBC (Auto) (0-5) /hpf U Epithel Cells (Auto) (0-5) /lpf Urine Bacteria (Auto) (Negative) Ethyl Alcohol mg/dL (0-3) mg/dl Diagnostic Findings ABDOMEN AND PELVIS CT WITH IV AND ORAL CONTRAST IMPRESSION: 1. No significant change compared to the prior study. 2. No bowel wall thickening or obstruction. 3. Cirrhotic liver with associated hepatic steatosis. 4. Cholecystectomy and splenectomy. 5. Additional findings as described above. XR chest 1V portable IMPRESSION: No acute process. Medications Administered ER medications given: NSS 1 hour bolus X2 Ondansetron 4 mg IV Ceftriaxone 2 g IV Morphine 4 mg IV ECG Indication: abdominal pain Rate (beats per minute): 98 Rhythm: normal sinus Findings: + PVC and + RBBB Comparison ECG Date: no prior available
[2020-12-04] MEDS: MoRPHine SULFATE 2 MG/ML CARP IV PRN (17:50)
--- NOTE | 2020-12-04 19:58 | Billing Data ---
Date of Service December 04, 2020 Coding Level of Care Code 69309 Subseq Obs Care Lvl 3
--- NOTE | 2020-12-04 19:58 | Billing Data ---
Date of Service December 04, 2020 Coding Level of Care Code 55382 Prolonged Care (int'l)
[2020-12-04] MEDS: PANTOprazole 40 MG TAB PO SCH (20:54)
[2020-12-04] MEDS: GABAPENTIN 300 MG CAP PO SCH (20:55)
[2020-12-04] MEDS ORDERED: SUCRALFATE 1 GM/10 ML UDC PO SCH (21:00)
[2020-12-04] MEDS: ZOLPIDEM TARTRATE 10 MG TAB PO PRN (23:18)
[2020-12-05] MEDS: LEVOTHYROXINE SODIUM 50 MCG TABLET PO SCH (05:52)
[2020-12-05] MEDS: ACETAMINOPHEN 325 MG TAB PO PRN ×2 (05:52→22:22)
[2020-12-05 06:32] LABS: Basophils # (auto) 0.18 K/uL (0-0.2); Eosinophils # (auto) 0.45 K/uL (0-0.5); Eosinophils % (auto) 5.1 %; Hematocrit (blood only) 47.2 % (37-47); Hemoglobin 16.1 g/dL (12.0-16.0); Immature Granulocytes # (auto) 0.02 K/uL (0.00-0.02); Immature Granulocytes % (auto) 0.2 %; Lymphocytes # (auto) 3.09 K/uL (1.2-3.4); Lymphocytes % (auto) 34.9 %; Mean Corpuscular Hemoglobin 35.1 pg (25-34); Mean Corpuscular Hgb Conc 34.1 g/dL (32-36); Mean Corpuscular Volume 102.8 fL (80-100); Mean Platelet Volume 10.7 fL (7.4-10.4); Monocytes # (auto) 1.27 K/uL (0.11-0.59); Monocytes % (auto) 14.3 %; Neutrophils # (auto) 3.85 K/uL (1.4-6.5); Neutrophils % (auto) 43.5 %; Platelet Count 313 K/uL (130-400); RDW Coefficient of Variation 14.8 % (11.5-14.5); RDW Standard Deviation 56.2 fL (36.4-46.3); Red Blood Count 4.59 M/uL (4.2-5.4); White Blood Count 8.86 K/uL (4.8-10.8)
[2020-12-05 07:06] LABS: Albumin Level 3.1 gm/dl (3.4-5.0); BUN Creatinine Ratio 9.7 (10-20); Calcium 9.4 mg/dl (8.5-10.1); Creatinine Clr Calc Pharmacy 118.8 ml/min; Est GFR (African American) 110.8; Est GFR (Non-African American) 95.6; Potassium 3.4 mmol/L (3.5-5.1)
[2020-12-05 07:09] LABS: Albumin Globulin Ratio 0.8 (0.9-2); Bilirubin,Total 1.1 mg/dl (0.2-1); Globulin 3.7 gm/dl (2.5-4.0); Total Protein 6.8 gm/dl (6.4-8.2)
[2020-12-05] MEDS: MoRPHine SULFATE 2 MG/ML CARP IV PRN ×3 (07:45→21:54)
[2020-12-05] MEDS: cefTRIAXone SODIUM 2,000 MG in DEXTROSE 5% 50 ML IV SCH (08:35)
[2020-12-05] MEDS: PARoxetine HCL 10 MG TAB PO SCH (08:53)
[2020-12-05] MEDS: PANTOprazole 40 MG TAB PO SCH ×2 (08:53→21:29)
[2020-12-05] MEDS: CYANOCOBALAMIN 500 MCG TABLET (VITAMIN B-12) PO SCH (08:53)
[2020-12-05] MEDS: TRIAMTERENE/HCTZ 37.5/25MG TAB PO SCH (08:54)
[2020-12-05] MEDS: LOSARTAN POTASSIUM 25 MG TAB PO SCH (08:54)
[2020-12-05] MEDS: EZETIMIBE 10 MG TABLET PO SCH (08:54)
[2020-12-05] MEDS: FLUTICASONE FUROATE 200MCG 14 PUFFS/INHALER INH SCH (08:54)
[2020-12-05] MEDS: FAMOTIDINE 20 MG TAB PO SCH ×2 (08:54→21:29)
[2020-12-05] MEDS: INSULIN GLARGINE SOLOSTAR 100 UNITS/ML 3 ML PEN SC SCH ×2 (08:57→21:22)
[2020-12-05] MEDS: INSULIN ASPART 100 UNITS/ML 3 ML PEN SC SCH ×4 (08:58→21:23)
[2020-12-05] MEDS: SUCRALFATE 1 GM TAB PO SCH ×4 (09:05→21:28)
--- NOTE | 2020-12-05 14:40 | Medical Student Progress Note ---
Date of Service December 05, 2020 Assessment & Plan (1) Gastric ulcer: - Consistent with patient's sx of RUQ - epigastric postprandial pain that is sharp and intermittent - Pt takes ibuprofen daily and drinks 2-3 alcoholic drinks/day increasing risk of PUD - GI consulted, EGD findings included mod-severe esophagitis and gastric ulcer, biopsies taken - Omeprazole switched to Pantoprazole 40mg BID - Started on Famotidine 20mg -Started on Carafate - Counseled patient about avoiding/reducing alcohol intake, ibuprofen use, and limiting acidic foods (2) RUQ abdominal pain: -Pain likely to be attributable to gastric ulcer and liver disease -Pt admitted with elevated transaminases that have downtrended -Pt has a hx of fatty liver disease as seen on last CT from 2019 -Last Abd/CT revealed nodularity in liver contour consistent with cirrhosis -Elevated transaminases likely due to early stage liver cirrhosis in the setting of chronic alcohol use of 2-3 drinks/day -Will continue to monitor transaminase levels q24 -Tyelnol ordered for pain, limit to 2g per 24 hour period -Morphine ordered for pain, 2mg q6 prn -Pt was counseled about the importance of alcohol cessation and limiting fats in diet in order to limit further progression of liver cirrhosis (3) UTI (urinary tract infection): -Pt had been experiencing dysuria and inability to urinate for the last several days -U/A + glucose, WBC, and bacteria -Urine culture pending -Continue Ceftriaxone 2000mg X 3 days (4) Abnormal liver diagnostic imaging: -Abd CT revealed nodularity within the contour of the liver likely to be liver cirrhosis -Likely to be a mixture of alcohol cirrhosis and NAFLD given the patient's alcohol use and hx of hepatosteatosis seen on CT imaging 12/2019 - Likely to be early stage cirrhosis since Plts, PT/INR within normal limits and EGD showed no evidence of esophageal or gastric varices (5) Type 2 diabetes mellitus: -HgbA1c of 10.5 - Continue home med lantus 10 units BID - Insulin Sliding Scale ordered - Counseled about the link between type 2 DM and NAFLD and the importance of adhering to a diabetic diet - Pt claims they strongly adhere to a diabetic diet limiting all carbohydrates, C-peptide ordered to evaluate for DM type 1 variant Diabetes mellitus complication detail: with polyneuropathy Diabetes mellitus complication status: with neurologic complications Diabetes mellitus termite helper insulin use: with detention use Qualified Code(s): E11.42 - Type 2 diabetes mellitus with diabetic polyneuropathy; Z79.4 - termite treater helper (current) use of insulin (6) Alcohol use disorder: - Pt has a hx of drinking 2-3/day for the last year - Continue Cyanocobalmin -Ordered Folic Acid and B12 level (7) Hypothyroidism: -TSH 1.2 -Continue Levothyroxine 50 mcg qd Hypothyroidism type: acquired Qualified Code(s): E03.9 - Hypothyroidism, unspecified (8) Hypertension: -Continue home meds losartan 25mg, triamterene/hctz 37.5mg Hypertension type: essential hypertension Qualified Code(s): I10 - Essential (primary) hypertension (9) Hyperlipidemia: -Continue home med Ezetimibe 10mg Qam Hyperlipidemia type: mixed hyperlipidemia Qualified Code(s): E78.2 - Mixed hyperlipidemia (10) Hepatitis C: -treated with interferon and ribavarin -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 still having epigastric/RUQ and back pain - still comes and goes at random - but is better than it was. vitals noted nad heent nc at mmm breathing unlabored no accessory muscles good effort skin no rashes no pallor or icterus abdominal pain - likely predominantly PUD and esophagitis, can't r/o some degree of liver pain from transaminitis/mild acute hepatitis; also then has viscerosomatic pain in Tspine paraspinals that have created referred spasm. improving a little today, as would be expected PUD/esophagitis -stopped nsaids and EtOH -H2 and PPI for now -carafate QID as well -showing slow improvement cirrhosis/fatty liver -likely formerly insult from hep C, now highly likely metabolic fatty liver as well as mild acute toxic hepatitis from ibuprofen and EtOH -cessation of offending agents -lifestyle change needed uncontrolled DM2 -tried to educate on lifestyle. if she truly eats the way she is describing then it would be worthwhile to pursue NASIR/RONEL type pathology, but given the rest of her parameters point toward metabolic syndrome and therefore insulin resistance/type 2 diabetes - will try to continue to revisit lifestyle hx as more than likely there are simple carbs she's missing/not realizing/not recalling -continue to titrate insulins, follow -Cpeptide for completeness. has had several normal TSH's in recent past macrocytosis -likely EtOH/liver related, but check b12/folic acid as well DVT proph - ambulation since PUD - don't want to increase bleed risk Subjective Today, pt was doing well but is still experiencing intermittent RUQ pain that radiates to the back. Overnight, pt had a vomiting episode. She also experienced some rectal bleeding and an uncontrolled BM. She denied changes in stool, denied melena, or any blood in stool. Pt is on a clear liquid diet and has eaten some liquids including jello, but has been pretty hesitant to do so. She was open to trying a regular diet today. She has been ambulating to and from the bathroom, but has not ambulated much due to fear of leaving her room and getting COVID. Review of Systems Constitutional: denies fatigue, malaise, fever Eyes: denies changes in vision Respiratory: denies cough, dyspnea Cardiovascular: Additional Comments: denies chest pain, palpitations Gastrointestinal: + RUQ pain, + nausea, + rectal bleeding Genitourinary: + dysuria, + urinary frequency Integumentary: denies yellowing of skin, changes in skin color Neurologic: denies headache, dizziness, weakness, numbness Physical Exam Constitutional: well developed Eyes: PERRL, conjunctivae normal, anicteric sclerae Respiratory: normal respiratory effort, lungs clear to auscultation Cardiovascular: RRR, no murmur, no edema Gastrointestinal (Abdomen): hyperactive bowel sounds, tender to palpation along right quadrant Musculoskeletal: no cyanosis or clubbing, extremities motor strength 5/5 Psychiatric: A+Ox3, euthymic affect Results & Data ([place]) Vital Signs (Past 12 Hours) Vital Signs Temp Pulse Resp BP Pulse Ox 12/05/20 07:25 37.0 C 85 18 159/102 H 93 Laboratory Results Abnormal lab results 12/03/20 12/03/20 12/03/20 Range/Units 12:52 13:35 13:50 WBC 10.91 H (4.8-10.8) K/uL Hgb 17.0 H (12.0-16.0) g/dL Hct 48.6 H (37-47) % MCV 101.0 H (80-100) fL MCH 35.3 H (25-34) pg RDW Std Deviation 53.7 H (36.4-46.3) fL RDW Coeff of Angelika 14.6 H (11.5-14.5) % MPV 11.2 H (7.4-10.4) fL Lymph # (Auto) 3.54 H (1.2-3.4) K/uL [place] # (Auto) 1.63 H (0.11-0.59) K/uL Eos # (Auto) 0.51 H (0-0.5) K/uL Immature Gran # (Auto) 0.03 H (0.00-0.02) K/uL Potassium (3.5-5.1) mmol/L Anion Gap (3-11) BUN (7-18) mg/dl BUN/Creatinine Ratio (10-20) Glucose (70-99) mg/dl POC Glucose 304 H* (70-99) mg/dl Hemoglobin A1c (4.5-5.6) % Lactate (0.4-2.0) mmol/L Direct Bilirubin (0-0.2) mg/dl AST (15-37) U/L ALT (12-78) U/L Alkaline Phosphatase (45-117) U/L Albumin (3.4-5.0) gm/dl Globulin (2.5-4.0) gm/dl Albumin/Globulin Ratio (0.9-2) Urine Appearance Turbid A (Clear) Urine Protein Trace H (Negative) Urine Glucose (UA) 3+ H (Negative) Urine Ketones Trace H (Negative) Urine WBC (Auto) >30 H (0-5) /hpf U Epithel Cells (Auto) >30 H (0-5) /lpf Urine Bacteria (Auto) 4+ H (Negative) Ethyl Alcohol mg/dL (0-3) mg/dl 12/03/20 12/03/20 12/03/20 Range/Units 13:50 13:50 15:03 WBC (4.8-10.8) K/uL Hgb (12.0-16.0) g/dL Hct (37-47) % MCV (80-100) fL MCH (25-34) pg RDW Std Deviation (36.4-46.3) fL RDW Coeff of Angelika (11.5-14.5) % MPV (7.4-10.4) fL Lymph # (Auto) (1.2-3.4) K/uL [place] # (Auto) (0.11-0.59) K/uL Eos # (Auto) (0-0.5) K/uL Immature Gran # (Auto) (0.00-0.02) K/uL Potassium 3.1 L (3.5-5.1) mmol/L Anion Gap 13.0 H (3-11) BUN (7-18) mg/dl BUN/Creatinine Ratio 8.5 L (10-20) Glucose 287 H (70-99) mg/dl POC Glucose (70-99) mg/dl Hemoglobin A1c (4.5-5.6) % Lactate 3.1 H* (0.4-2.0) mmol/L Direct Bilirubin 0.3 H (0-0.2) mg/dl AST 79 H (15-37) U/L ALT 82 H (12-78) U/L Alkaline Phosphatase 122 H (45-117) U/L Albumin (3.4-5.0) gm/dl Globulin 4.5 H (2.5-4.0) gm/dl Albumin/Globulin Ratio 0.8 L (0.9-2) Urine Appearance (Clear) Urine Protein (Negative) Urine Glucose (UA) (Negative) Urine Ketones (Negative) Urine WBC (Auto) (0-5) /hpf U Epithel Cells (Auto) (0-5) /lpf Urine Bacteria (Auto) (Negative) Ethyl Alcohol mg/dL (0-3) mg/dl 12/03/20 12/03/20 12/03/20 Range/Units 15:03 16:04 19:05 WBC (4.8-10.8) K/uL Hgb (12.0-16.0) g/dL Hct (37-47) % MCV (80-100) fL MCH (25-34) pg RDW Std Deviation (36.4-46.3) fL RDW Coeff of Angelika (11.5-14.5) % MPV (7.4-10.4) fL Lymph # (Auto) (1.2-3.4) K/uL [place] # (Auto) (0.11-0.59) K/uL Eos # (Auto) (0-0.5) K/uL Immature Gran # (Auto) (0.00-0.02) K/uL Potassium (3.5-5.1) mmol/L Anion Gap (3-11) BUN (7-18) mg/dl BUN/Creatinine Ratio (10-20) Glucose (70-99) mg/dl POC Glucose 181 H (70-99) mg/dl Hemoglobin A1c (4.5-5.6) % Lactate 2.4 H* (0.4-2.0) mmol/L Direct Bilirubin (0-0.2) mg/dl AST (15-37) U/L ALT (12-78) U/L Alkaline Phosphatase (45-117) U/L Albumin (3.4-5.0) gm/dl Globulin (2.5-4.0) gm/dl Albumin/Globulin Ratio (0.9-2) Urine Appearance (Clear) Urine Protein (Negative) Urine Glucose (UA) (Negative) Urine Ketones (Negative) Urine WBC (Auto) (0-5) /hpf U Epithel Cells (Auto) (0-5) /lpf Urine Bacteria (Auto) (Negative) Ethyl Alcohol mg/dL 22.2 H (0-3) mg/dl 12/03/20 12/03/20 12/04/20 Range/Units 20:32 22:03 05:49 WBC (4.8-10.8) K/uL Hgb (12.0-16.0) g/dL Hct (37-47) % MCV 102.9 H (80-100) fL MCH (25-34) pg RDW Std Deviation 55.9 H (36.4-46.3) fL RDW Coeff of Angelika 14.8 H (11.5-14.5) % MPV (7.4-10.4) fL Lymph # (Auto) 3.96 H (1.2-3.4) K/uL [place] # (Auto) 1.41 H (0.11-0.59) K/uL Eos # (Auto) 0.60 H (0-0.5) K/uL Immature Gran # (Auto) 0.03 H (0.00-0.02) K/uL Potassium (3.5-5.1) mmol/L Anion Gap (3-11) BUN (7-18) mg/dl BUN/Creatinine Ratio (10-20) Glucose (70-99) mg/dl POC Glucose 164 H 266 H (70-99) mg/dl Hemoglobin A1c (4.5-5.6) % Lactate (0.4-2.0) mmol/L Direct Bilirubin (0-0.2) mg/dl AST (15-37) U/L ALT (12-78) U/L Alkaline Phosphatase (45-117) U/L Albumin (3.4-5.0) gm/dl Globulin (2.5-4.0) gm/dl Albumin/Globulin Ratio (0.9-2) Urine Appearance (Clear) Urine Protein (Negative) Urine Glucose (UA) (Negative) Urine Ketones (Negative) Urine WBC (Auto) (0-5) /hpf U Epithel Cells (Auto) (0-5) /lpf Urine Bacteria (Auto) (Negative) Ethyl Alcohol mg/dL (0-3) mg/dl 12/04/20 12/04/20 12/04/20 Range/Units 07:21 07:21 08:13 WBC (4.8-10.8) K/uL Hgb (12.0-16.0) g/dL Hct (37-47) % MCV (80-100) fL MCH (25-34) pg RDW Std Deviation (36.4-46.3) fL RDW Coeff of Angelika (11.5-14.5) % MPV (7.4-10.4) fL Lymph # (Auto) (1.2-3.4) K/uL [place] # (Auto) (0.11-0.59) K/uL Eos # (Auto) (0-0.5) K/uL Immature Gran # (Auto) (0.00-0.02) K/uL Potassium 3.2 L (3.5-5.1) mmol/L Anion Gap (3-11) BUN 6 L (7-18) mg/dl BUN/Creatinine Ratio 9.2 L (10-20) Glucose 201 H (70-99) mg/dl POC Glucose 181 H (70-99) mg/dl Hemoglobin A1c 10.7 H (4.5-5.6) % Lactate (0.4-2.0) mmol/L Direct Bilirubin (0-0.2) mg/dl AST 65 H (15-37) U/L ALT (12-78) U/L Alkaline Phosphatase (45-117) U/L Albumin 2.8 L (3.4-5.0) gm/dl Globulin (2.5-4.0) gm/dl Albumin/Globulin Ratio 0.7 L (0.9-2) Urine Appearance (Clear) Urine Protein (Negative) Urine Glucose (UA) (Negative) Urine Ketones (Negative) Urine WBC (Auto) (0-5) /hpf U Epithel Cells (Auto) (0-5) /lpf Urine Bacteria (Auto) (Negative) Ethyl Alcohol mg/dL (0-3) mg/dl Diagnostic Findings ABDOMEN AND PELVIS CT WITH IV AND ORAL CONTRAST IMPRESSION: 1. No significant change compared to the prior study. 2. No bowel wall thickening or obstruction. 3. Cirrhotic liver with associated hepatic steatosis. 4. Cholecystectomy and splenectomy. 5. Additional findings as described above. XR chest 1V portable IMPRESSION: No acute process.
--- NOTE | 2020-12-05 18:25 | Billing Data ---
Date of Service December 05, 2020 Coding Level of Care Code 77776 Subseq Hosp Care Lvl 3
[2020-12-05] MEDS: ZOLPIDEM TARTRATE 10 MG TAB PO PRN ×2 (21:28→23:11)
[2020-12-05] MEDS: GABAPENTIN 300 MG CAP PO SCH (21:29)
[2020-12-06] MEDS: LEVOTHYROXINE SODIUM 50 MCG TABLET PO SCH (05:57)
[2020-12-06] MEDS: ACETAMINOPHEN 325 MG TAB PO PRN (06:06)
[2020-12-06 06:31] LABS: Hematocrit (blood only) 46.6 % (37-47); Hemoglobin 15.7 g/dL (12.0-16.0); Mean Corpuscular Hgb Conc 33.7 g/dL (32-36); Mean Corpuscular Volume 103.8 fL (80-100); Mean Platelet Volume 11.1 fL (7.4-10.4); Platelet Count 292 K/uL (130-400); RDW Coefficient of Variation 14.8 % (11.5-14.5); RDW Standard Deviation 56.2 fL (36.4-46.3); Red Blood Count 4.49 M/uL (4.2-5.4); White Blood Count 10.03 K/uL (4.8-10.8)
[2020-12-06 07:00] LABS: BUN Creatinine Ratio 8.3 (10-20); Calcium 9.2 mg/dl (8.5-10.1); Creatinine Clr Calc Pharmacy 110.2 ml/min; Est GFR (African American) 108.1; Est GFR (Non-African American) 93.3; Potassium 3.3 mmol/L (3.5-5.1)
[2020-12-06 07:03] LABS: Albumin Globulin Ratio 0.8 (0.9-2); Bilirubin,Total 0.9 mg/dl (0.2-1); Globulin 3.9 gm/dl (2.5-4.0); Total Protein 6.9 gm/dl (6.4-8.2)
[2020-12-06 08:26] LABS: Folate (Folic Acid) 16.3 ng/ml (>5.38)
[2020-12-06] MEDS ORDERED: THIAMINE HCL 100 MG TAB PO SCH (09:00)
[2020-12-06] MEDS ORDERED: MULTIVITAMIN TAB PO SCH (09:00)
[2020-12-06] MEDS: cefTRIAXone SODIUM 2,000 MG in DEXTROSE 5% 50 ML IV SCH (09:22)
[2020-12-06] MEDS: FAMOTIDINE 20 MG TAB PO SCH (09:34)
[2020-12-06] MEDS: CYANOCOBALAMIN 500 MCG TABLET (VITAMIN B-12) PO SCH (09:35)
[2020-12-06] MEDS: SUCRALFATE 1 GM TAB PO SCH ×2 (09:35→14:08)
[2020-12-06] MEDS: PARoxetine HCL 10 MG TAB PO SCH (09:35)
[2020-12-06] MEDS: EZETIMIBE 10 MG TABLET PO SCH (09:35)
[2020-12-06] MEDS: PANTOprazole 40 MG TAB PO SCH (09:35)
[2020-12-06] MEDS: TRIAMTERENE/HCTZ 37.5/25MG TAB PO SCH (09:35)
[2020-12-06] MEDS: LOSARTAN POTASSIUM 25 MG TAB PO SCH (09:35)
[2020-12-06] MEDS: INSULIN ASPART 100 UNITS/ML 3 ML PEN SC SCH ×2 (09:42→13:47)
[2020-12-06] MEDS: INSULIN GLARGINE SOLOSTAR 100 UNITS/ML 3 ML PEN SC SCH (09:46)
[2020-12-06] MEDS: FLUTICASONE FUROATE 200MCG 14 PUFFS/INHALER INH SCH (10:19)
[2020-12-06] MEDS: POTASSIUM CHLORIDE / WTR 10 MEQ/100 ML PLCT IV SCH ×2 (10:20→11:24)
--- NOTE | 2020-12-06 11:32 | Gastroenterology Progress Note ---
Date of Service December 06, 2020 Assessment & Plan (1) Obesity: (2) RUQ abdominal pain: (3) Type 2 diabetes mellitus: (4) Abnormal liver diagnostic imaging: Pt is a 59 y.o female with obesity, DMII poorly controlled, fatty liver, PMH hep C, abnormal liver imaging suggestive of cirrhosis, and regular NSAID/ETOH use admitted with RUQ pain and persistent n/v. PUD diagnosed on EGD. Concern for possible sx of gastroparesis as well as imaging suggestive of hepatic cirrhosis. 1. Continue low fat, diabetic diet with improved blood glucose management. Recommend referral to endocrinology diabetes team. 2. Continue Pantoprazole 40 mg BID. 3. Outpatient GES to be scheduled. 6. Our office is contacting patient to arrange follow up within 2 weeks. Thank you for allowing us to participate in the care of this patient. If you have any questions or concerns, please do not hesitate to contact us. Admission and Anticipated Discharge Date Admission Date: December 05, 2020 Subjective Patient reports feeling improved from a GI standpoint. Still with some nausea and RUQ after eating. H&H is stable. Remains on BID PPI and low fat, diabetic diet. Verbalizes desire to go home. Review of Systems Constitutional: no problem reported Gastrointestinal: as per Subjective / HPI Physical Exam Constitutional: well developed and well nourished Eyes: EOM intact bilaterally Neck: normal visual inspection Respiratory: normal respiratory effort Skin: normal color Psychiatric: A+Ox3, euthymic affect Results & Data Results & Data ([facility]) Vital Signs (Past 12 Hours) Vital Signs Temp Pulse Resp BP BP Pulse Ox 12/06/20 08:27 173/109 H 12/06/20 07:00 36.8 C 87 16 164/93 H 96 12/05/20 23:42 36.7 C 79 16 153/90 H 95 PG Care Time/CCT Total # of Minutes Spent Total Time Spent with Patient: Total time spent is greater than 50% in coordination of care (as documented) at patient's floor/unit and/or counseling patient: Coding Level of Care Code 53486 Subseq Hosp Care Lvl 3 Diagnoses Obesity E66.9 RUQ abdominal pain R10.11 Type 2 diabetes mellitus E11.42; Z79.4 Diabetes mellitus complication detail: with polyneuropathy Diabetes mellitus complication status: with neurologic complications Diabetes mellitus assisted insulin use: with assisted use Abnormal liver diagnostic imaging R93.2 (1) Type 2 diabetes mellitus Diabetes mellitus complication detail: with polyneuropathy Diabetes mellitus complication status: with neurologic complications Diabetes mellitus assisted insulin use: with assisted use Qualified Code(s): E11.42 - Type 2 diabetes mellitus with diabetic polyneuropathy; Z79.4 - terminal makeup operator (current) use of insulin
--- NOTE | 2020-12-06 18:43 | Discharge Summary ---
Date of Service December 06, 2020 Admission HPI Per Admitting Provider Aisha Knight is a 60 year old female who presents to the ER with a nearly one month history of RUQ abdominal pain, nausea and vomiting. Her symptoms initially included fever and shortness of breath however she recovered from this initial illness but was left with abdominal pain and nausea which has persisted over the last month, intermittently getting better and worse. Despite symptoms over the last month, they have significantly progressed over the last few days where she is now unable to eat anything (able to keep down small amounts of liquids. She does note similarly severe pain and nausea lasting for 48 hours last week in addition which subsided without intervention - unsure what made this worse or better. Pain is mostly RUQ and epigastric, comes on 5-10 minutes after eating. Severity 10/10 at worse, Lab work taken by her PCP indicated an elevated bilirubin of 1.8 and given history of cholangitis requiring ERCP she called her PCP office noting her symptoms were getting worse and she was advised to come to the ER for CT scan and gastroenterology consult. She has a significant history of cholecystectomy and acute cholangitis following this requiring ERCP. All treatment was in [facility] so the details are not known at time of admission. She also has a significant history of treated hepatitis C and last saw gastroenterology/hepatology approximately 10 years ago. She denies any history of liver cirrhosis. She does note she was on a liver transplant list but reports being taken off after her hepatitis C was eradicated and her liver recovered. She does admit to drinking alcohol more regularly during the last year with the current pandemic. She thought this was ok as her liver had recovered and was never told to stop drinking. She admits to drinking 2-3 drinks up until around [place] when she has been having her current illness noted above. She reports drinking 2-3 beers/day up until then. She does admit to having a drink of 9% beer last week and last night as she was unsure whether the lack of alcohol was now causing her problem, however she has not noticed any worsening or improvement with her pain or nausea with alcohol use. She denies any alcohol withdrawal shaking, chills etc... after stopping alcohol around [place]. Regarding gastritis her PCP recently increased her omeprazole dosing to 40mg and told to take this daily (previously taking 20mg every 3 days). She has not not iced any change in her symptoms after increasing this. In the ER her bilirubin has actually improved. UA was concerning for UTI and on ROS patient noted dysuria for the last 2 days although minor compared to her ongoing abdominal pain as above. She was referred to medicine due to ongoing abdominal pain and nausea and inability to take PO food. We discussed the option of going home and following up with GI however the patient feels she is unable to cope at home at the current time. Admission Exam Per Admitting Provider Constitutional: well developed, well nourished and + obese; no acute distress Eyes: + anicteric sclerae; normal pupil size ENMT: external ear and nose normal, oropharynx normal Neck: trachea midline, no thyromegaly Respiratory: normal respiratory effort, lungs clear to auscultation Cardiovascular: RRR, no murmur, no edema Gastrointestinal (Abdomen): Inspection/Auscultation: abdomen normal to inspection and normal bowel sounds; abdomen not distended Percussion/Palpation: + abdomen tender (RUQ, epigastric), + guarding and abdomen soft; abdomen not rigid Musculoskeletal: no cyanosis or clubbing, extremities motor strength 5/5 Skin: no rashes, warm and dry Neurologic: moves all extremities and awake; no focal motor deficits and not confused Motor/Sensory: no tremor and no pronator drift Psychiatric: A+Ox3, euthymic affect Genitourinary: + CVA tenderness (Right) Principal Diagnosis PUD Discharge Exam General: Grossly A&O. NAD. Cooperative. HEENT: Atraumatic, normocephalic. Pulm: CTAB. -wheezes, -rales, -rhonchi. No respiratory distress. Cardiac: RRR, -mrg. Abdominal: Nondistended, soft. +RUQ TTP to deep palpation. No epigastric TTP to deep palpation. Discharge Data Allergies Allergy/AdvReac Type Severity Reaction Status Date / Time Penicillins Allergy Unknown Unknown Unverified 12/03/20 13:45 grass pollen Allergy Verified 12/03/20 13:45 latex Allergy Hives Verified 12/03/20 13:45 lidocaine Allergy Verified 12/03/20 13:45 mold Allergy Verified 12/03/20 13:45 tree and shrub pollen Allergy Verified 12/03/20 13:45 Consultations 12/03/20 20:19 Consult Gastroenterology Routine Procedures Performed Operation Date: 12/04/20 17:30 Actual Procedures p EGD Biopsy Cytology(Not Applicable) - Neri Cordero MD Ordered Studies 12/03/20 12:35 CT abd pelvis oral and IV con Stat 12/04/20 09:00 US duplex mesenteric Routine Diabetes Follow up Diabetes Follow-up Needed for HgbA1c >9% Hospital Course (1) RUQ abdominal pain: Aisha Knight is a 60 y/o F w/ hx of distant treated Hep C, cholecystectomy, distant acute cholangitis (20 yrs ago), diabetes (on insulin) who was admitted at [facility] from 12/03/20 to 12/06/20 for RUQ abdominal and right mid-upper back pain. - limit tylenol to <2g/24 hours - avoid NSAIDs, acidic foods - continue alcohol cessation counseling - continue dietary counseling and DM educator f/u - PCP f/u for early stage cirrhosis. did not refer to hepatology at this time - PCP f/u for HTN, BP recheck - GI f/u for PUD and moderate-severe esophagitis RUQ abdominal pain, multifactorial -epigastric, postprandial, sharp, intermittent, likely to be attributable to gastric ulcer and liver disease as well as some referred pain/muscle spasming of R mid-upper back. - Pt admitted with elevated transaminases (likely 2/2 early stage cirrhosis in setting of 2-3 etoh drinks/day) that have downtrended - AST 133 (11/30/20 outpatient), downtrended to 47 on 12/06/20. ALT 102 (11/30/20 outpatient), downtrended to 56 on 12/06/20. alk phos 126 (11/30/20 outpatient), downtrended to 103 on 12/06/20. - PT/INR within normal limits and EGD showed no evidence of esophageal or gastric varices - Pt has a hx of fatty liver disease as seen on last CT from 12/2019 - 12/03/20 CT abd/pelv: heterogenous appearance to liver w/ nodular contour consistent w/ cirrhosis. 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 pantoprazole w/ be longer term while famotidine will be d/c'd in 1-2 wks, and carafate in several wks. time course TBD by outpatient GI acute simple cystitis -Pt had been experiencing dysuria and inability to urinate for the last several days - U/A + glucose, WBC, and bacteria - Urine culture grew mixed kerline -s/p 3 days of IV ceftriaxone 2g daily. will complete 2 days of oral cefidinir 300mg PO BID to complete 5 day cephalosporin course because patient has some continued urinary symptoms (dysuria resolved, but still has difficulty initiating and decreased volumes). If symptoms persist past a week, consider other etiologies, such as progression of diabetes vs genitourinary pathologies diabetes mellitus, uncontrolled - type 1 vs type 2, c peptide pending -HgbA1c of 10.5 - extensive counseling provided - new regimen: lantus 10u BID. 5u novolog at each meal w/ 2 hour postprandial sugar checks (goal 100-150) and adjusting via soft counting. see discharge instructions section for details. alcohol use disorder - Pt has a hx of drinking 2-3/day for the last year - B12, folate checked this admission - counseled hypertension: - elevated BPs up to 170s/100s range during this admission, likely partially from pain - instructed to check home BPs 3-4x/wk and will f/u w/ PCP -continue home meds losartan 25mg, triamterene/hctz 37.5mg chronic back pain - counseled on avoidance of NSAIDs and limiting tylenol to <2g/day - recommend continued f/u w/ pain management hypothyroidism: -TSH 1.2, stable -Continue Levothyroxine 50 mcg qd hyperlipidemia: -Continue home med Ezetimibe 10mg Qam [place] filter in place, hx of DVT - chronic, stable - Per 06/01/20 [facility] vascular surgery phone note. Hx dvt/pe after surgery in 1995. was started on warfarin which was later discontinued and IVC filter placed ([facility] in [place]) after presented w/ [facility] and brain imaging noted "brain malformation" w/ some "bleeding." No further dvt/pe recurrence. DVT prophylaxis: did not use chemical ppx this admission because of gastric ulcer Code: Full (2) [place] filter in place: (3) Hepatitis C: (4) Type 2 diabetes mellitus: (5) Hypothyroidism: (6) Hypertension: (7) Fatty liver: (8) Hyperlipidemia: (9) Acid reflux disease: (10) MCFP (current) use of insulin: (11) UTI (urinary tract infection): (12) Obesity: (13) Gastric ulcer: (14) Alcohol use disorder: (15) Chronic back pain: Total Time Total Time Spent Total Time Spent (In Minutes): >30 Discharge Plan Discharge Items Patient Disposition: Home - Self-Care Reason For Visit: INTRACTABLE ABDOMINAL PAIN Discharge Diagnosis: gastric ulcer, esophagitis, UTI Activity: Per Instructions section Non-emergency contact: Primary Care Provider and Shot Hole Driller Call non-emergency contact if: you have any medication questions and your symptoms worsen Follow-up/Referrals: Stevenson Dorado MD [Physician] - 12/20/20 11:00 am (follow up in 2 weeks) Chuck Arnold III, CRNP [Primary Care Provider] - 12/13/20 10:00 am (hospital follow up in 1 week. - please refer to patch machine operator - please follow up cirrhosis) Neri Cordero MD [Physician] - 12/21/20 11:00 am (follow up in 2 weeks) Diet: Carb Consistent or DM2 Addtl Attending Provider Instructions: You were admitted to [facility] for abdominal pain. Follow up w/ gastroenterology (Dr. Cordero) in 2 weeks. His office will contact y ou. Follow up w/ endocrinology (Dr. Dorado) in ~ 2 weeks. Follow up w/ your primary care provider in 1-2 weeks. If you do not hear back, please call the respective offices to schedule your appointments. I have recommended that you be referred to a patch machine operator on an outpatient basis. abdominal pain/stomach ulcer/esophagitis -after seeing the results of the scope, it was clear that the bulk of the stomach pain you were feeling was from the stomach ulcer as well as the esophageal inflammation (esophagitis) -these two problems likely came about due to the irritating/toxic effects of ant i-inflammatories (ibuprofen) and alcohol -obviously one of the main things in getting this better is strictly avoiding any/all anti-inflammatories and alcohol so that your stomach and esophagus have a chance to heal -to reduce the pain and make healing faster, we'll be doing the following with medications: -acid suppression: BOTH protonix (pantoprazole) twice a day AND pepcid (famotidine) twice a day -coating the lining of your stomach and esophagus: carafate (sucralfate) four times a day (right before meals, and then before bedtime) ---> over time as you get better, you'll keep following up with Chuck and with gastroenterology - we'd expect that in a week or two, they'll guide you to trying to stop the pepcid (famotidine) -- if that goes well//you don't feel worse for it - then a few weeks after that, they'll have you reduce or stop the carafate (sucralfate), finally if that goes well, then a few weeks after you're off the sucralfate, they'll have you reduce and gradually try to stop the protonix (pantoprazole) -while the ulcer and esophagitis caused the bulk of the problem, it's also quite possible that your mild degree of liver inflammation was also contributing to the pain -as we discussed, the back pain appears to have been referred pain from all of your upper gastrointestinal inflammation --> the nerves that carry pain from your stomach, esophagus, and liver all return to your spinal cord in the mid thoracic region - right around where you were having all the pain. fortunately as the inflammation is calming down, the back pain appears to be calming down with it cirrhosis -your liver does appear to look cirrhotic on imaging, but fortunately in terms of medical severity, things appear to really be at the mild end of the cirrhosis spectrum --> we're not seeing lots of bad swollen veins around your stomach or esophagus on scope, and the numbers that show how your liver works as a "manufacturing plant" and detoxification system appear to be pretty normal/very close to normal -this means that as long as we help you stop doing things that can insult your liver further, we should be able to keep this from getting worse. additionally, since the liver has an amazing ability to heal, it's also possible that over time your liver can even show some improvement -the three things that we're seeing that will need to change to stop hurting your liver are the use of anti-inflammatories/over the counters, alcohol, and better control of your diabetes --->for now, we'll want you on no anti-inflammatories at all, and while short bursts (a few days) of tylenol (acetaminophen) at doses less than 2000mg per day can be safe, i would advise against taking it regularly for the skilled nursing (see below as it relates to your back pain) --->we'll just need you to look at any amount of alcohol as potentially a problem, so we'd have you avoid that 100% --->metabolic disarray from uncontrolled diabetes (see below) definitely is a cause of fatty liver, and diabetic/dysmetabolic fatty liver is another way that a lot of people end up with cirrhosis, so working on/achieving better metabolic control is probably just as important as avoiding over the counters and alcohol -periodically Chuck and IRON will keep an eye on labwork as it pertains to your liver type 2 diabetes -as discussed above, the main acute problem as it relates to your diabetes control is that it's highly likely a contributor to your fatty liver/risk of progression of cirrhosis -exterminator helper, we also worry about diabetes because high sugars clog arteries -- the longer you run high, and the higher you run, the more you block off blood vessels and work on problems like heart attacks, strokes, neuropathy, and progressive kidney disease -as we discussed, for most diabetics, starchy carbs are a huge culprit - and often in ways that we don't even notice (because they're so common in what is available for most day foods) -we'll have you work on revamping sugar control so that you stay out of harm's way both with your liver and with your blood vessels ----->insulins -you're on two different insulins - lantus (long acting) and novolog (short acting) -the lantus covers your fasting metabolism, it is your "basal" insulin. typically lantus kicks in slowly about 2 hours after injecting it, it never reaches a peak of activity, and then it slowly wears off 18-24 hours after injecting -novolog (or the other short acting insulins are all similar) kicks in about 15 minutes after you take it, peaks in activity about 90 minutes after you take it, and then wears off about 4 hours after -the reason for taking both is that the lantus won't do anything different to cover carbs in what you eat, but the novolog wears off too quickly to really have any meaningful coverage of your fasting/resting metabolism --->take the lantus as 10 units twice a day. the reason for the twice a day is mostly so that the last 6 hours - when the lantus is wearing off - you don't run into troubles with spiking sugars because nothing is in your system to cover your fasting metabolism. also, however, it can help with your peace of mind since you'll know that you're not taking all of your insulin at once ---> take the novolog different at each meal, based on what you're going to eat. at first, when you're not sure what to take/how much to take/how the food will affect your body/metabolism/sugar readings, it would be reasonable to start with about 5 units at each meal. as we discussed, the pearson to this will be "grading your work" -- once you've eaten/once you've take the short acting insulin, then it's really important to check a sugar about 2 hours after eating. this gives you two really useful pieces of information: 1) it shows you how that food impacted your body. this becomes a great way to identify foods that have more carbs in it than you realized -- typically if you eat something and see a sugar way higher than you expected, then you can know that it was more carb loaded than you knew. 2) it helps you decide how much insulin to take the next time you eat that food or something similar ---> you'll have a goal of seeing a sugar between about 100-150 two hours after you eat. if your sugar is higher than that, you'll know two things - 1) that you probably ate something fairly carb dense that you'll want to reduce or avoid in the future, and 2) that if you are eating that or something similar then you'll want to take a little more insulin the next time (for example, say you ate salmon, rice, and asparagus, and took 5 units of novolog. then you check your sugar 2 hours later and see a reading of 270. first, you'd want to look back at what you ate, and see that the rice probably hits you a lot harder than you expected. second, you would then realize that if you ate that again (or something similar like chicken, broccoli, and potatoes) then you would want to try something like 8 units of insulins and see how you do. conversely, if you ate something really low in carbs like eggs and black coffee, then took 5 units of novolog, and saw a sugar 2 hours later of 60, then you would know that the next time you eat that (or something similar) then you might only want to take 2 units). it's a learning curve, but most people fairly quickly start to get comfortable with their body/how food impacts them/how much insulin it takes to stay between about 100-150 -as a general rule, you'll want your total insulin dose on the day to be about 50% lantus, and 50% novolog. the main reason i bring this up is simply that if you start to see things really getting out of balance (let's say you're still on 10 of lantus twice a day, but with meals you've found your way up to 15 units of novolog at each meal -- so 20 lantus and 45 log - then you'd want to talk to the team about how best to adjust that back so that you're not running into sugars running too high when you're fasting or other, similar problems. and as an opposite, let's say you have gone to totally low carb foods and have gotten to where you're really not needing/not able to take any novolog when you eat so you're on 20 of lantus and 0 of novolog - then it also would be time to talk to your team about probably starting to reduce the lantus so that you don't have "random" lows when you're in a prolonged fasting state (like sleeping). this would also be a nice sign that you're starting to "fix" your metabolism - often as diabetics really start to do well on lifestyle measures (the eating, as well as (back pain permitting) some form of light cardiovascular exercise each day) they can often become "less diabetic" and sometimes become "ex-diabetics"!) back pain/lumbar disc disease -as we discussed, not being able to take ibuprofen or acetaminophen, etc, may be more painful in the short term, but in the exterminator helper, people with your kind of back pain often do well with a multimodal approach that's more focused on the back than just what we can do to mask the pain --> work regularly with the pain management docs. while the injections aren't "a cure" they frequently can keep the pain down enough to make things livable, and are obviously much safer than an operation -additionally, i'd recommend getting connected with a good chiropractor for biomechanical treatment as well as decompression therapy (decompression being a very focused form of traction that can help buy the nerves some breathing room) --in my experience doing BOTH the injections and the decompression has about an 80% success rate of keeping people functional and out of the operating room -locally, someone like Dr Fraga of [facility] does really good work for situations like yours Urinary tract infection -this is getting better, but we'll have you finish up 2 more days of antibiotics to try to get it totally away. we'll have you take an antibiotic called cefdinir - 300mg twice a day - for 2 more days (four doses - next dose tomorrow morning). if, by chance, the urinary symptoms aren't continuing to improve or aren't gone by the time you're done with the cefdinir, it would be worth seeing Chuck and repeating a urine culture to follow up on why/if the symptoms didn't improve blood pressure -as we discussed, it's exceedingly common for people to have blood pressure elevations like you're showing when they're in the hospital. typically, it's not alarming to see them in this context - it's much more when people run like this over months and years that it leads to hardening of the arteries, and heart attacks and strokes. my joke (but based both science and experience) is that someone's blood pressure will drop 20 points just by leaving the building. the reality is that it might take a few days or weeks, but we expect your blood pressure to settle back to your normal range. if not, then they'd need to adjust medications up. to see where you're really running, we'd definitely recommend that you get a blood pressure cuff for home. check your pressure maybe 3-4 times a week, at random times, so that you see the range of how you really run. from there, as you review the information with Chuck, then he can help you front office java developer if we need to treat things more aggressively or if you're doing well Pending Studies at Discharge: Yes Stand-Alone Forms: My [facility], Smoking Cessation Medications and DC Order Prescriptions: New pantoprazole 40 mg tablet,delayed release (DR/EC) 40 mg PO BID 30 Days Qty: 60 RF: 0 famotidine [Pepcid] 20 mg tablet 20 mg PO BID 14 Days Qty: 28 RF: 0 sucralfate [Carafate] 100 mg/mL suspension 1 g PO ACHS 28 Days Qty: 280 RF: 0 cefdinir 300 mg capsule 300 mg PO BID Qty: 4 RF: 0 Continued albuterol sulfate [Ventolin HFA] 90 mcg/actuation HFA aerosol inhaler See Rx Instructions INH .COMPLEX PRN (Reason: shortness of breath or wheezing) Qty: 8.5 RF: 0 alcohol swabs [Alcohol Prep Pads] Pads, Medicated 2 pad TOP DAILY Qty: 200 RF: 3 (DME) pen needle, diabetic [Comfort EZ Pen [place]] 31 gauge x 3/16" needle See Rx Instructions .ROUTE .MEDSUPPLY Qty: 100 RF: 3 ammonium lactate 12 % lotion 1 appln TOP BID Qty: 225 RF: 2 (DME) lancets [OneTouch Delica Lancets] 30 gauge misc See Rx Instructions .ROUTE .MEDSUPPLY Qty: 300 RF: 1 triamcinolone acetonide 0.1 % ointment 1 applic TOP BID Qty: 453.6 RF: 0 mupirocin 2 % ointment 1 applic topical BID Qty: 22 RF: 0 hydrocortisone 2.5 % cream 1 applic topical BID Qty: 30 RF: 1 cyclobenzaprine 5 mg tablet 5 mg PO DAILY PRN (Reason: sleep) Qty: 90 RF: 1 (DME) OneTouch Verio test strips Strip See Rx Instructions .ROUTE .MEDSUPPLY Qty: 300 RF: 1 clobetasol 0.05 % solution 1 applic TOP DAILY Qty: 50 RF: 1 ketoconazole 2 % shampoo 1 applic TOP .COMPLEX Qty: 120 RF: 4 Flovent HFA 110 mcg/actuation HFA aerosol inhaler 2 puff INH BID Qty: 36 RF: 1 paroxetine HCl [Paxil] 10 mg tablet 10 mg PO QAM RF: 0 gabapentin 300 mg capsule 300 mg PO HS Qty: 30 RF: 2 (DME) pen needle, diabetic [BD Maki 2nd Gen Pen Needle] 32 gauge x 5/32" needle See Rx Instructions .ROUTE .MEDSUPPLY Qty: 100 RF: 1 (DME) FreeStyle Cami 14 Day Eckerman Misc See Rx Instructions .MEDSUPPLY Qty: 1 RF: 0 (DME) FreeStyle Cami 14 Day Sensor Kit See Rx Instructions .MEDSUPPLY Qty: 2 RF: 6 (DME) FreeStyle Cami 14 Day Sensor Kit See Rx Instructions .MEDSUPPLY Qty: 2 RF: 6 zolpidem 10 mg tablet 10 mg PO HS PRN (Reason: Sleep) RF: 0 cyanocobalamin (vitamin B-12) 1,000 mcg tablet 1,000 mcg PO QAM RF: 0 losartan 25 mg tablet 25 mg PO QAM RF: 0 triamterene-hydrochlorothiazid 37.5-25 mg tablet 1 tab PO QAM RF: 0 ezetimibe 10 mg tablet 10 mg PO QAM RF: 0 insulin aspart U-100 [Novolog Flexpen U-100 Insulin] 100 unit/mL (3 mL) insulin pen 0 units SQ UD RF: 0 Lantus Solostar U-100 Insulin 100 unit/mL (3 mL) insulin pen 20 unit subcut HS RF: 0 levothyroxine [Tirosint] 50 mcg capsule 50 mcg PO QAM RF: 0 Discontinued omeprazole 40 mg capsule,delayed release(DR/EC) 40 mg PO QAM RF: 0 Discharge Orders: Discharge Order (Routine); Ordered 12/06/20 Ordered By: George Shipley/Other Patient Handouts: Discharge Instructions- Eating a ... Admission Data Admit Date/Time: 12/05/20 13:49 Attending Provider: George Ram Admit Provider: Tamir Roque Primary Care Provider: Chuck Arnold III Other Providers: Andi Greene ; Carlin Silva ; Tamir Roque Other Interventions: Discharge Summary Assessment (RN) Last Done: 12/06/20 15:20 Supervising Physician Co-Signing Physician Notes I personally examined the patient and verified all pearson points of history and exam, discussed case, and agree with decision making with Dr Silva. pain improving and eating better, feels up to going home. extensive discussions - and summarized discussions/recommendations for pt in discharge instructions vitals noted nad heent nc at mmm breathing unlabored no accessory muscles good effort skin no rashes no pallor or icterus abdominal pain - likely predominantly PUD and esophagitis, can't r/o some degree of liver pain from transaminitis/mild acute hepatitis; also then has viscerosom atic pain in Tspine paraspinals that have created referred spasm. showing slow/steady improvement - and safe for home PUD/esophagitis -stopped nsaids and EtOH -H2 and PPI for now -carafate QID as well -showing slow improvement - stable for home, outpt f/u cirrhosis/fatty liver -likely formerly insult from hep C, now highly likely metabolic fatty liver as well as mild acute toxic hepatitis from ibuprofen and EtOH -cessation of offending agents -lifestyle change needed, educated uncontrolled DM2 -ongoing lifestyle education, as well as coaching on carb-matching w short acting insulins. she was more receptive today and expressed some understanding. wrote in instructions as well -Cpeptide for completeness given EtOH abuse and small chance of insulin deficiency, although strongly suspect this is all insulin resistance. has had several normal TSH's in recent past macrocytosis -likely EtOH/liver related, b12/folate were fine DVT proph - ambulation utilzed since PUD - didn't want to increase bleed risk Resident Activity Tracking Resident Involvement: Resident Care Provided Care Provided: Adult Hospital Medicine
--- NOTE | 2020-12-06 18:53 | Billing Data ---
Date of Service December 06, 2020 Coding Level of Care Code D/C Day Management >30 mins
== END 2020-12-06 15:47 | disposition home or self-care (01) | DRG 384 ==
LOC: ED 11:50 → 3W 11:50 → SUATTDRO 17:50 → 3W 19:11